=== PATIENT | female | born 1965 | race Caucasian/White ===

== ENCOUNTER → 2019-03-23 14:27 | Outpatient (CLI) | payer SELFPAY ==
--- NOTE | ~2019-03-23 | ST ---
PATIENT:KRISTA TUCKER MEDICAL RECORD: [id number] SEX: F LOCATION:[facility] ORDER #: ADMISSION DATE: 03/23/19 AGE OF PATIENT: 53 REFERRING PHYSICIAN: INTERPRETING PHYSICIAN: IRENE NARVAEZ MD DATE OF SERVICE: 03/23/2019 PROCEDURE: Stress test. INDICATION: Chest pain, hypertension, COPD, and shortness of breath. The patient was exercised on standard Ruben protocol for 7 minutes 10 seconds achieving 85% maximum target heart rate response. The patient became extremely short of breath and did develop chest pain during the stress test. There was greater than [address] depression with this stress test and its symptomatology. OVERALL IMPRESSION: Positive for inducible ischemia at adequate cardiac workload. TRANSINT:[id number] Voice Confirmation ID: [id number] DOCUMENT ID: [id number] IRENE NARVAEZ MD CC: MARIBELL SNOW [id number] DICTATION DATE: 03/24/19 1052 AUTOMATIC CLIPPER: 03/25/19 0329 DEP CLI 03/23/[address] [address]
== END | disposition home or self-care (01) ==
LOC: D.HCCARDIO 14:27
PROVIDERS: ATTEND Internal Medicine Interventional Cardiology
DX: R07.9 Chest pain, unspecified (principal)

== ENCOUNTER 2019-03-31 07:52 | Outpatient (CLI) | payer SELFPAY ==
[~2019-03-31] VITALS: Ht 165.1 cm; Wt 43.2 kg
--- NOTE | ~2019-03-31 | OP ---
PATIENT NAME: KRISTA TUCKER MEDICAL RECORD: [id number] :69 LOCATION:[facility] ADMISSION DATE: SURGEON: IRENE NARVAEZ MD DATE OF OPERATION: 03/31/2019 DATE OF SERVICE: 03/31/2019 PROCEDURES: 1. PTCA stent RCA. 2. Left heart catheterization. 3. Selective coronary angiography. 4. Left ventriculogram. INDICATION: Unstable angina and coronary artery disease. PROCEDURE IN DETAIL: After informed consent was obtained and after a detailed description of the risks, benefits as well as alternative therapies, the patient elected to proceed with angiogram and angioplasty. The right femoral area was prepped and draped in normal sterile fashion. Right femoral artery was cannulated via modified Seldinger technique with placement of 6-Divehi sheath. All catheters exchanged through this sheath. FINDINGS: Left ventriculogram was performed in standard 30-degree MERCEDES view, reveals good cardiac wall motion throughout all segments. Overall ejection fraction estimated 60%. SELECTIVE CORONARY ANGIOGRAPHY: 1. Left main is with no significant angiographic disease. 2. Left anterior descending has heavy calcification, but no significant disease. 3. Left circumflex has moderate diffuse disease, but no flow-limiting stenosis. 4. Right coronary is large, dominant with 90% stenosis in the mid vessel. PTCA STENT OF THE RCA: Stents used were 3.5 x 22 and 3.0 x 15, both Subhash stents. Result was 0% residual stenosis. OVERALL IMPRESSION: Successful percutaneous transluminal coronary angioplasty stent of the right coronary artery going from 90% initial stenosis to 0% residual. TRANSINT:[id number] Voice Confirmation ID: [id number] DOCUMENT ID: [id number] IRENE NARVAEZ MD CC: [id number] DICTATION DATE: 03/31/19 1144 CASING MIXER: 03/31/19 1309 [facility] [address] [place] [address]
--- NOTE | ~2019-03-31 | HEMODYNAMI ---
PATIENT:KRISTA TUCKER MEDICAL RECORD: [id number] : 69 LOCATION:[facility] ADMISSION DATE: 03/31/19 Generatedon:03/31/201911:52 Patient name: KRISTA TUCKER Patient #: [id number] SSN: [id number] : 1965 Date of study: 03/31/2019 Page: Of Hemodynamic Procedure Report Patient Data Patient Demographics Procedure consent was obtained First Name: KRISTA Gender: Female Last Name: GARRETT : 1965 Patient #: [id number] Age: 53 year(s) Race: Unknown SSN: [id number] Additional ID: [id number] Contact details Address: [address] [place] [address] State: [place] City: [place] Zip code: [address] Past Medical History Performed procedures and imaging results Date Procedure Procedure Results Comments Stress testing Positive->Intermediate with SPECT MPI risk Allergies Allergen Reaction Date Comments Reported Other allergy 03/31/2019 ERYTHROMYCIN BASE, OPIOIDS, TETRACYCLINE Admission Admission Data Admission Date: 03/31/2019 Admission Time: 7:52 Arrival Date: 03/31/2019 Arrival Time: 0:00 Admit Source: Other Height (in.): 64.96 BSA: 1.44 (m2) Height (cm.): 165 BMI: 15.79 (kg/m2) Weight (lbs.): 94.8 Weight (kg.): 43 Lab Results Lab Result Date: 03/31/2019 Lab Result Time: 1:00 CBC Name Units Result Min Max Hematocrit % 43.6 --(*---)-- 42 54 Hemoglobin g/dl 14.8 --(-*--)-- 13.5 17.5 Procedure Procedure Types Cath Procedure Diagnostic Procedure [facility] w/Coronaries Sedation Charges Moderate Sedation up to 30 minutes PCI Procedure Coronary Stent Coronary Stent Initial Hemochron ACT Test Procedure Description Procedure Date Procedure Date: 03/31/2019 Procedure Start Time: 11:13 Procedure End Time: 11:46 Procedure Staff Name Function Blayne Loza MD Performing Physician Adry Brown RT Monitor Lisa Moraes RT Monitor Mc Garcia RT Scrub Ike Mancuso RN Nurse Procedure Data Cath Procedure Fluoroscopy Diagnostic fluoroscopy Total fluoroscopy Time: 6 time: 6 min min Diagnostic fluoroscopy Total fluoroscopy dose: 240 dose: 240 mGy mGy Contrast Material Contrast Material Type Amount (ml) Isovue 300 120 Entry Location Entry Primary Successful Side Size Upsize Upsize Entry Closure Weber ccessful Closure Location (Fr) 1 (Fr) 2 (Fr) Remarks Device Remarks Radial Right 6 Fr Mechanical artery Short Compression Femoral Right 5 Fr 6 Fr Exoseal artery Short Estimated blood loss: 10 ml Diagnostic catheters Device Type Used For End Catheter Placement DIAGNOSTIC [place] 110cm 5 Procedure Fr catheter ([id number]) MULTIPACK Pigtail 5 Fr LV Angiography catheter MULTIPACK JL 4.0 5Fr Left Coronary catheter Angiography MULTIPACK 3DRC 5Fr Right Coronary catheter Angiography Procedure Complications No complications Procedure Medications Medication Administration Route Dosage 0.9% NaCl I.V. 100 ml/hr Oxygen etCO2 Nasal cannula 2 l/min Heparin Flush Bag added to field 2 bags (1000units/500ml NS) Lidocaine 2% added to field 20 Benadryl I.V. 50 mg Radial Cocktail added to field 1 syringe (Verapamil 2mg/Nitro 400mcg/Heparin 1500units) Versed I.V. 2 mg Versed I.V. 2 mg Radial Cocktail I.A. 1 syringe (Verapamil 2mg/Nitro 400mcg/Heparin 1500units) Versed I.V. 2 mg Zofran I.V. 4 mg Versed I.V. 2 mg Demerol I.V. 100 mg Heparin Bolus I.V. 4000 units Integrilin (Bolus I.V. 4 ml 2mg/ml) Plavix P.O. 600 mg Hemodynamics Rest BSA: 1.44 (m2) HGB: 14.8 (g/dl) O2 Consumption: Estimated: 136.38 (ml/min) O2 Co nsumption indexed: Estimated:94.71 (ml/min/m) Heart Rate: 62 (bpm) Snapshots Pre Cath Intra NCS Post Cath Vital Signs Time Heart Resp SPO2 etCO2 NIBP (mmHg) Rhythm Pain Sedation Rate (ipm) (%) (mmHg) Status Level (bpm) 10:55:07 61 15 97 0 165/81(137) NSR 0 (11) 10(A) , No pain 10:59:19 68 12 100 0 160/89(123) NSR 0 (11) 10(A) , No pain 11:03:31 69 17 99 28.4 132/83(112) NSR 0 (11) 10(A) , No pain 11:07:32 69 19 94 28.4 139/86(127) NSR 0 (11) 10(A) , No pain 11:11:36 69 15 99 32.8 153/91(119) NSR 0 (11) 10(A) , No pain 11:15:48 74 20 100 28.4 139/76(100) NSR 0 (11) 10(A) , No pain 11:19:52 79 22 98 26.1 140/87(125) NSR 0 (11) 10(A) , No pain 11:25:01 80 25 96 22.4 139/87(114) NSR 0 (11) 10(A) , No pain 11:29:07 82 13 94 0 136/83(119) NSR 0 (11) 9(A) , No pain 11:33:13 81 10 88 0 123/76(102) NSR 0 (11) 9(A) , No pain 11:37:14 88 11 93 40.3 126/78(111) NSR 0 (11) 9(A) , No pain 11:41:18 91 23 94 40.3 124/73(105) NSR 0 (11) 9(A) , No pain 11:45:22 86 14 94 34.3 108/70(87) NSR 0 (11) 10(A) , No pain Medications Time Medication Route Dose Verified Delivered Reason Not es Effectiveness by by 11:01:31 0.9% NaCl I.V. 100 Ike Ike Per physician ml/hr Bartolome Mancuso RN RN 11:01:40 Oxygen etCO2 2 l/min Ike Ike for low 02 sats Nasal Bartolome Mancuso cannula RN RN 11:01:52 Heparin Flush added 2 bags Ike Ike used for Bag to Bartolome Mancuso procedure (1000units/500ml field RN RN NS) 11:02:09 Lidocaine 2% added 20ml Ike Ike for local to vial Lorigan Bartolome anesthetic RN RN 11:02:35 Benadryl I.V. 50 mg Ike Ike Per physician Bartolome Mancuso RN RN 11:08:25 Radial Cocktail added 1 Ike Ike used for (Verapamil to syringe Loramanda Mancuso procedure 2mg/Nitro field PEREZ RN 400mcg/Heparin 1500units) 11:13:28 Versed I.V. 2 mg Ike Ike for sedation Bartolome Mancuso RN RN 11:15:30 Versed I.V. 2 mg Ike Ike for sedation Bartolome Mancuso RN RN 11:16:02 Radial Cocktail I.A. 1 Ike Blayne for (Verapamil syringe Bartolome Loza MD vasodilation 2mg/Nitro RN 400mcg/Heparin 1500units) 11:24:30 Versed I.V. 2 mg Ike Ike for sedation Bartolome Mancuso RN RN 11:25:47 Zofran I.V. 4 mg Ike Ike Per physician Bartolome Mancuso RN RN 11:27:19 Versed I.V. 2 mg Ike Ike for sedation Bartolome Mancuso RN RN 11:27:36 Demerol I.V. 100 mg Ike Ike for sedation Bartolome Mancuso RN RN 11:31:33 Heparin Bolus I.V. 4000 Ike Ike for joseph ified units Bartolome Mancuso anticoagulation with dr ANA brand 11:32:46 Integrilin I.V. 4 ml Ike Ike for was scottie 6 (Bolus 2mg/ml) Bartolome Mancuso antiplatelet ml of RN RN therapy vial 11:44:01 Plavix P.O. 600 mg Ike Ike for Bartolome Mancuso antiplatelet RN RN therapy Procedure Log Time Note 10:39:37 Informed consent obtained and on chart 10:39:58 Procedure Status Elective Heart Cath (OP). 10:40:01 Mc Garcia RT(R) sent for patient. Start room use. 10:40:02 Time tracking: Regular hours (M-F 7:00 - 5:00) 10:40:05 Plan of Care:Hemodynamics will remain stable., Cardiac rhythm will remain stable., Comfort level will be maintained., Respiratory function will remain adequate., Patient/ family verbilizes understanding of procedure., Procedure tolerated without complication., Recovers from procedure without complications.. 10:41:04 H&P Date Dictated: 03/02/2019 Within 30 days and on chart., H&P Addendu m completed by physician on day of procedure. (MUST COMPLETE FOR ALL OUTPATIENTS). 10:41:29 Patient allergic to Other allergyERYTHROMYCIN BASE, OPIOIDS, TETRACYCLINE 10:41:54 Lab Result : BUN 16 mg/dl 10:41:54 Lab Result : Creatinine 0.7 mg/dl 10:41:54 Lab Result : eGFR NONAFRICAN 90 ml/min 10:46:23 Patient Weight : 94.8 lbs 10:46:27 Patient Height : 64.96 inches 10:46:31 Arrival Date: 03/31/2019 12:00:00 AM 10:46:33 Admit Source: Other 10:47:33 Lab Result : Hemoglobin 14.8 g/dl 10:47:33 Lab Result : Hematocrit 43.6 % 10:47:46 Patient received from Pre/Post Procedure Room to CCL 1 Alert and oriented. Tansferred to table in Supine position. 10:47:47 Warm blankets applied, and zion hugger turned on for patient comfort. 10:47:47 Correct patient and procedure confirmed by team. 10:47:48 ECG and BP/O2 sat monitors applied to patient. 10:49:34 Stress Test: yes; abnormal ? 10:49:37 Risk of Mortality: .2 10:49:39 Risk of blood transfusion: 2 10:49:42 Risk of [place]: .8 10:53:59 Vital chart was started 10:54:37 Pre-procedure instructions explained to patient. 10:54:38 Pre-op teaching completed and patient verbalized understanding. 10:54:44 Family in waiting room. 10:54:56 Patient NPO since Midnight. 10:54:59 Is the patient allergic to Iodine/contrast media? No. 10:55:05 Was the patient premedicated? Yes 10:55:13 Is patient on blood thinner?No 10:55:16 Patient diabetic? No. 10:56:32 Patient not . Patient has had tubal. 10:56:34 - 10:56:35 ----Pre-sedation anethsthesia assessment.---- 10:56:40 Previous problem with sedation/anesthesia? No ? 10:56:45 Snore? Yes 10:57:00 Sleep apnea? No 10:57:07 Deviated septum? No 10:57:09 Opens mouth fully? Yes 10:57:12 Sticks out tongue? Yes 10:57:36 Airway obstruction? Yes asthma/copd 10:57:43 Dentures? No ? 10:57:57 Pre procedure: right dorsailis pedis pulse 1+ Palpable, but thready & weak; easily obliterated 10:58:02 Modified Nav's test Ulnar < 7 seconds 10:58:10 Patient pain scale 0/10 ?. 10:59:04 IV patent on arrival in right antecubital with 0.9% NaCl at [facility]. 10:59:12 Lab results completed and on chart. 10:59:19 Right Radial & Right Groin area was prepped with chlora-prep and draped in sterile fashion 10:59:22 Alarms reviewed by R. N. 10:59:23 Sharps counted by scrub and verified by R.N. 10:59:29 Baseline sample Acquired. 10:59:36 Rhythm: sinus rhythm 10:59:39 Full Disclosure recording started 11:01:31 0.9% NaCl 100 ml/hr I.V. was administered by Ike Mancuso RN; Per physician; Verbal order read back and verified. 11:01:40 Oxygen 2 l/min etCO2 Nasal cannula was administered by Ike Mancuso RN; for low 02 sats; Verbal order read back and verified. 11:01:52 Heparin Flush Bag (1000units/500ml NS) 2 bags added to field was administered by Ike Mancuso RN; used for procedure; Verbal order read back and verified. 11:02:09 Lidocaine 2% 20ml vial added to field was administered by Ike Mancuso RN; for local anesthetic; Verbal order read back and verified. 11:02:35 Benadryl 50 mg I.V. was administered by Ike Mancuso RN; Per physician; Verbal order read back and verified. 11:03:20 Use device set Radial Dx or PCI 11:03:22 ACIST Syringe (06510) opened to sterile field. 11:03:23 Medline Cath Pack ([id number]) opened to sterile field. 11:03:24 Bag Decanter () opened to sterile field. 11:03:25 ACIST Hand Control (89169) opened to sterile field. 11:03:26 ACIST Manifold (54252) opened to sterile field. 11:03:27 Tegaderm 4 x 4 (1626W) opened to sterile field. 11:03:28 MBrace Wrist Support ([id number]) opened to sterile field. 11:03:30 EMERALD Guide Wire (180-841) opened to sterile field. 11:03:31 SHEATH 6FR RAIN (5065978) opened to sterile field. 11:04:42 ACC Patient presents with Stable Angina CCS Anginal Class 2--Slight limitation of ordinary activity. 11:05:09 ACCPatient has been prescribed/administered the following anti-anginal medication within the last 2 weeks: CLAUDIO-Inhibitor 11:06:01 Zero performed for pressure channel P1 11:08:25 Radial Cocktail (Verapamil 2mg/Nitro 400mcg/Heparin 1500units) 1 syring e added to field was administered by Ike Mancuso RN; used for procedure; Verbal order read back and verified. 11:12:36 Physician arrived 11:12:42 --------ALL STOP TIME OUT------ 11:12:43 Final Timeout: patient, procedure, and site verified with staff and physician. All members of the team are in agreement. 11:12:44 Right Radial & Right Groin site verified by team. 11:12:47 Fire Safety Assessment: A--An alcohol-based skin anteseptic being used preoperatively., C--Open oxygen or nitrous oxide is being used., D--An ESU, laser, or fiber-optic light is being used. 11:12:50 Physical assessment completed. ASA score P 2 - A patient with mild systemic disease as per Blayne Loza MD. 11:12:51 1) 90+ Normal kidney functon but urine findings or structural abnormalities or genetic trait point to kidney disease. 11:12:56 Maximum allowable contrast dose (3.7 X eGFR X 0.75)250 ml. 11:13:00 Sedation plan: IV Moderate Sedation Medication:Versed, Fentanyl 11:13:19 Procedure started. 11:13:28 Versed 2 mg I.V. was administered by Ike Mancuso RN; for sedation; Verbal order read back and verified. 11:13:54 Local anesthetic to right radial artery with Lidocaine 2% by Blayne Loaz MD.INITIAL ACCESS ONLY 11:15:11 A 6 Fr Short sheath was inserted into the Right Radial artery 11:15:30 Versed 2 mg I.V. was administered by Ike Mancuso RN; for sedation; Verbal order read back and verified. 11:15:36 A DIAGNOSTIC [place] 110cm 5 Fr catheter ([id number]) was advanced over the wire and used for Procedure. 11:16:02 Radial Cocktail (Verapamil 2mg/Nitro 400mcg/Heparin 1500units) 1 syring e I.A. was administered by Blayne Loza MD; for vasodilation; Verbal order read back and verified. 11:16:21 GLIDE WIRE ANGLE 260cm ([id number]) opened to sterile field. 11:16:42 glidewire 260 wire advanced. 11:20:19 UNABLE TO GO RADIAL / PROCEED TO RT GROIN. 11:20:27 Local anesthetic to right femoral artery with Lidocaine 2% by Blayne Loza MD.ADDITIONAL ACCESS 11:20:38 SHEATH 5FR [place]hart (JFG471) opened to sterile field. 11:20:43 Use device set Multipack Set 11:20:48 DIAGNOSTIC Multipack 5Fr catheter set ([id number]) opened to sterile field. 11:24:30 Versed 2 mg I.V. was administered by Ike Mancuso RN; for sedation; Verbal order read back and verified. 11:25:47 Zofran 4 mg I.V. was administered by Ike Mancuso RN; Per physician; Verbal order read back and verified. 11:27:11 Catheter removed. 11:27:19 Versed 2 mg I.V. was administered by Ike Mancuso RN; for sedation; Verbal order read back and verified. 11:27:24 A 5 Fr sheath was inserted into the Right Femoral artery 11:27:36 Demerol 100 mg I.V. was administered by Ike Mancuso RN; for sedation; Verbal order read back and verified. 11:27:42 A MULTIPACK Pigtail 5 Fr catheter was advanced over the wire and used for LV Angiography. 11:27:51 EF : 55 % 11::53 LV gram done using MERCEDES 11::57 Injector settings: Ml/sec: 5, Volume: 15, 11:28:08 A MULTIPACK JL 4.0 5Fr catheter was advanced over the wire and used for Left Coronary Angiography. 11:28:29 LCA angiography performed. 11:28:34 Injector settings: Ml/sec: 3, Volume: 6, 11:28:57 [place] Verrata Plus pressure wire ([id number]) opened to sterile field. 11:29:09 SHEATH 6FR [place]hart (LPC091) opened to sterile field. 11:29:21 INFLATOR Merit BasixCompak (IQ2602) opened to sterile field. 11:29:29 Catheter removed. 11:29:37 A MULTIPACK 3DRC 5Fr catheter was advanced over the wire and used for Right Coronary Angiography. 11:29:50 RCA angiography performed. 11::53 Injector settings: Ml/sec: 3, Volume: 6, 11:30:04 ACCDominant side:Right 11:30:22 Catheter removed. 11:30:25 Proceeding to intervention. 11:30:40 ACC Pre-intervention MEGAN Flow is 3. 11:30:54 Sheath upsized to a 6 Fr Short. 11:31:07 GUIDE 6FR AR 2.0 catheter ([id number]) opened to sterile field. 11:31:23 6 Fr AR2 guide catheter was inserted over the wire 11:31:33 Heparin Bolus 4000 units I.V. was administered by Ike Mancuso RN; for anticoagulation; verified with dr olza Verbal order read back and verified. 11:31:37 Pre PCI Site: [place] mRCA has 90% stenosis. 11:32:02 CHOICE PT Extra Support 182cm wire ([id number]) opened to sterile field. 11:32:15 CHOICE 180 wire advanced. 11:32:19 Wire advanced across lesion. 11:32:46 Integrilin (Bolus 2mg/ml) 4 ml I.V. was administered by Ike Mancuso RN; for antiplatelet therapy; wasted 6 ml of vial Verbal order read back and verified. 11:32:55 Inflate balloon Inflation number: 1 A EUPHORA 3.0 x 20 Balloon ([id number]) was prepped and advanced across the Mid RCA , then inflated to 21 GAYLE for 0:00 (min:sec) . 11:33:19 Balloon removed over the wire. 11:35:09 Place stent Inflation Number: 2 A ROBERTO RX 3.0 x 15 stent ([id number]) was prepped and advanced across the Mid RCA . The stent was deployed at 21 GAYLE for 0:00 (min:sec) . 11:35:44 Stent catheter was removed intact over wire. 11:36:39 Place stent Inflation Number: 3 A ROBERTO RX 3.5 x 22 stent ([id number]) was prepped and advanced across the Mid RCA . The stent was deployed at 19 GAYLE for 0:00 (min:sec) . 11:37:34 Inflation number: 4 The stent balloon was then re-inflated across the Mid RCA to 11 GAYLE for 0:00 (min:sec) . 11:38:26 Stent catheter was removed intact over wire. 11:38:28 Wire removed. 11:38:35 Guide catheter removed. 11:39:01 EXOSEAL 6Fr (EX600) opened to sterile field. 11:39:19 ACC Post-intervention MEGAN Flow is 3. 11:39:31 Post PCI Site: [place] mRCA has 0% stenosis. 11:39:42 ZEPHYR REGULAR TR BAND (041906) opened to sterile field. 11:40:05 Sheath removed intact; hemostasis achieved with Exoseal to the Right Femoral artery. 11:40:17 Sheath removed intact; hemostasis achieved with Mechanical Compression to the Right Radial artery. 11:40:20 Procedure ended.(Physican Out) 11:41:06 ACT drawn and resulted at 216 seconds. (normal therapeutic range 180-24 0 seconds). 11:41:18 Contrast amount:Isovue 300 120ml. 11:41:29 Fluoroscopy time 06.00 minutes. 11:41:37 Fluoroscopy dose: 240 mGy 11:41:37 Flurop Dose total: 240 11:41:48 Dose Area Product 85660 mGy/cm. 11:41:52 Maximum allowable dose exceeded? No. 11:41:54 Sharps counted by scrub and verified by R.N. 11:41:57 Insertion/operative site no bleeding no hematoma. 11:42:04 Post-op/insertion site Right Femoral artery dressed using a 4 x 4 and Tegaderm. 11:42:10 Post right radial artery:stable 11:42:14 Post Procedure Pulses reassessed and unchanged 11:42:22 Post-procedure physical assessment completed. ASA score P 2 - A patient with mild systemic disease as per Blayne Loza MD. 11:42:31 Post procedure rhythm: unchanged. 11:42:36 Estimated blood loss: 10 ml 11:42:39 Post procedure instruction explained to patient.Patient verbalizes understanding. 11:42:40 Patient needs reinforcement of post procedure teaching. 11:44:01 Plavix 600 mg P.O. was administered by Ike Mancuso RN; for antiplatelet therapy; Verbal order read back and verified. 11:44:28 Procedure type changed to Cath procedure, Diagnostic procedure, LHC, C w/Coronaries, Sedation Charges, Moderate Sedation up to 30 minutes, PCI procedure, Coronary Stent, Coronary Stent Initial, Hemochron ACT Test 11:44:30 Procedure and supply charges have been captured, reviewed, submitted an d are correct. 11:46:01 Procedure Complication : No complications 11:46:16 Vital chart was stopped 11:46:20 [facility] Findings: MVD- PCI performed (see procedure note) 11:46:24 Operative report dictated upon procedure completion. 11:46:25 See physician's report for complete and final results. 11:46:28 Report given to Pre/Post Procedure Room. 11:46:38 Patient transfered to Pre/Post Procedure Room with Stretcher. 11:46:41 Procedure ended. 11:46:41 Full Disclosure recording stopped 11:46:49 ACC-PCI Only Patient was given prescriptions, or instructed by Blayne Loza MD to start/continue the following medications upon discharge: Plavix 11:50:50 [place] band inflated with 10cc of air. 11:50:55 End room use (Document Last) Intervention Summary Intervention Notes Time ActionType Lesion and Equipment Used Action# Pressure Duration Attributes 11:32:55 Inflate Mid RCA EUPHORA 3.0 x 1 21 00:00 balloon 20 Balloon ([id number]) 11:35:09 Place stent Mid RCA ROBERTO RX 3.0 x 2 21 00:00 15 stent ([id number]) 11:36:39 Place stent Mid RCA ROBERTO RX 3.5 x 3 19 00:00 22 stent ([id number]) 11:37:34 Reinflate Mid RCA ROBERTO RX 3.5 x 4 11 00:00 stent 22 stent balloon ([id number]) Device Usage Item Name Manufacture Quantity Catalog Number Hospital Part Current Minimal Lot# / Charge Number Stock Stock Serial# Code ACIST Syringe Acist 1 87515 900973 091875 111086 20 (01895) Medical Systems Inc Medline Cath Medline 1 [id number] 745740 38200 791145 5 Pack ([id number]) Bag Decanter Microtek 1 2001S 252314 54792 891907 5 (2001S) Medical Inc. ACIST Hand Acist 1 09932 508270 207633 752281 5 Control Medical (04781) Systems Inc ACIST Manifold Acist 1 00726 495114 619666 572474 5 (67283) Medical Systems Inc Tegaderm 4 x 4 3M 1 1626W 689782 348743 741600 5 (1626W) MBrace Wrist Advanced 1 140-0250-00 948204 02000 215219 5 Support Vascular ([id number]) Dynamics EMERALD Guide Cardinal 1 502-455 802830 419369 479311 5 Wire (502-455) Health SHEATH 6FR Cardinal 1 1040947 237574 8834367 974486 5 RAIN (8178612) Health DIAGNOSTIC Terumo 1 40-5013 604710 014014 456811 5 [place] 110cm 5 Fr catheter (466951) GLIDE WIRE Terumo 1 BV6609 421774 810292 068453 5 ANGLE 260cm (XS4835) SHEATH 5FR Terumo 1 LWJ879 757890 254077 515799 5 [place] (FFB197) DIAGNOSTIC Cardinal 1 JM4115 668385 50544 864187 30 Multipack 5Fr Health catheter set (AF9992) MULTIPACK Cardinal 1 107996 5 Pigtail 5 Fr Health catheter MULTIPACK JL Cardinal 1 373894 5 4.0 5Fr Health catheter [place] 1 55375U 234933 375735862 802009 5 Verrata Plus pressure wire (24990A) SHEATH 6FR Terumo 1 CQA639 125374 108136 433840 40 [place] (VUQ115) INFLATOR Merit Merit 1 HI9846 669569 684040 166913 15 [facility] Medical (WB4580) MULTIPACK 3DRC Cardinal 1 126482 5 5Fr catheter Health GUIDE 6FR AR Medtronic 1 [id number] 726835 17931 924784 1 2.0 catheter (QE0ID49) CHOICE PT [place] 1 [id number] 741113 351835 168901 5 Extra Support Scientific 182cm wire (1106783E8) EUPHORA 3.0 x Medtronic 1 [id number] 481205 288946 967504 5 [id number] 20 Balloon ([id number]) ROBERTO RX 3.0 x Medtronic 1 [id number] 247431 2667126 239264 5 [id number] 15 stent ([id number]) ROBERTO RX 3.5 x Medtronic 1 [id number] 061184 4989123 436280 5 [id number] 22 stent ([id number]) EXOSEAL 6Fr Cardinal 1 EX600 019550 780388 348855 10 (EX600) Health ZEPHYR REGULAR Cardinal 1 545347 366904 4036856 185869 5 [facility] MileIQ (749626) Signature Audit [place] Stage Time Signature Unsigned Intra-Procedure 03/31/2019 Lisa 11:51:39 AM Aleisha RT(R) (CV) Intra-Procedure 03/31/2019 Ike 11:52:13 AM Bartolome PEREZ Intra-Procedure 03/31/2019 Blayne Loza 11:52:41 AM [place] [id number] [place] [address]
[2019-03-31] MEDS ORDERED: LISINOPRIL10 MG PO (08:09)
[2019-03-31] MEDS ORDERED: NORVASC2.5 MG PO (08:09)
[2019-03-31] MEDS ORDERED: FLOVENT HFA 11012 GM INH (08:10)
[2019-03-31] MEDS ORDERED: KLONOPIN1 MG PO (08:10)
[2019-03-31] MEDS ORDERED: SYMBICORT 16010.2 GM INH (08:11)
[2019-03-31 08:39] VITALS: BP 136/82; Ht 165.1 cm; Wt 43.2 kg
[2019-03-31 09:00] LABS: ALT (SGPT) 24 U/L (10-68); CALC OSMOLALITY 278 mosm/kg (275-300); CALCIUM 9.3 mg/dL (8.5-10.1); CARBON DIOXIDE 27.7 mmol/L (21.0-32.0); CHLORIDE - SERUM 106 mmol/L (98-107); CHOL - HDL RATIO 2.7 ratio (2.3-4.1); CHOLESTEROL, TOTAL 127 mg/dL (0-200); CREATININE - SERUM 0.7 mg/dL (0.6-1.3); GLUCOSE 77 mg/dL (74-106); HDL CHOLESTEROL 48 mg/dL (32-96); LDL CHOLESTEROL 70 mg/dL (0-100); LDL-HDL RATIO 1.5 ratio (1.5-3.5); POTASSIUM - SERUM 3.8 mmol/L (3.5-5.1); SODIUM 140 mmol/L (136-145); TRIGLYCERIDE 48 mg/dL (30-200); UREA NITROGEN 16 mg/dL (7-18); eGFR NON AFRICAN AMERICAN > 90 mL/min (90-120)
[2019-03-31 10:46] LABS: BASOPHILS 0.2 % (0-2); EOSINOPHILS 1.2 % (0-7); HEMATOCRIT 43.6 % (36.0-48.0); HEMOGLOBIN 14.8 g/dL (12-16); IMMATURE GRANULOCYTES 0.1 % (0-5); LYMPHOCYTES 21.3 % (15-50); MCH 31.5 pg (26.0-34.0); MCHC 33.9 g/dL (31.0-37.0); MCV 92.8 fL (80.0-100.0); MEAN PLATELET VOLUME 10.8 fL (7.4-10.4); MONOCYTES 5.4 % (2-11); NEUTROPHILS 71.8 % (40-80); PLATELET COUNT 335 10x3/uL (130-400); RDW 14.2 % (11.5-14.5); WBC 8.8 10x3/uL (4.8-10.8)
--- NOTE | 2019-03-31 12:00 | NUR ---
PT ARRIVED BY STRETCHER. PLACED ON MONITORS. ASSESSMENT COMPLETED. VSS. CALL LIGHT WITHIN REACH. FAMILY AT BEDSIDE.
--- NOTE | 2019-03-31 12:15 | NUR ---
PT RESTING COMFORTABLY. VSS. CALL LIGHT WITHIN REACH. FAMILY AT BEDSIDE. RIGHT WRIST Z BAND IN PLACE. NO BLEEDING/HEMATOMA NOTED. RIGHT GROIN DRESSING C/D/I. NO S/S OF HEMATOMA NOTED.
[2019-03-31] MEDS ORDERED: BAYER CHEWABLE81 MG PO (12:32)
[2019-03-31] MEDS ORDERED: PLAVIX75 MG PO (12:33)
--- NOTE | 2019-03-31 12:48 | NUR ---
PT RESTING COMFORTABLY. VSS. RIGHT GROIN DRESSING C/D/I. NO S/S OF HEMATOMA NOTED. RIGHT WRIST Z BAND IN PLACE. NO BLEEDING/HEMATOMA NOTED. CALL LIGHT WITHIN REACH. FAMILY AT BEDSIDE.
--- NOTE | 2019-03-31 13:20 | NUR ---
RIGHT GROIN DRESSING C/D/I. NO S/S OF HEMATOMA NOTED. CALL LIGHT WITHIN REACH. VSS. FAMILY AT BEDSIDE. PT AWAKENS TO VOICE. ABLE TO SWALLOW THE PLAVIX 600MG WITH SIPS OF WATER. TOLERATED WELL.
--- NOTE | 2019-03-31 14:45 | NUR ---
RIGHT GROIN DRESSING C/D/I. NO S/S OF HEMATOMA NOTED. CALL LIGHT WITHIN REACH. FAMILY AT BEDSIDE. PT'S HEAD OF BED INC TO 30 DEGREES. TOLERATED WELL. 1cc OF AIR REMOVED FROM Z BAND. NO BLEEDING/HEMATOMA NOTED. PT SET UP WITH SANDWICH AND DRINK. DENIES NAUSEA/PAIN AT THIS TIME.
--- NOTE | 2019-03-31 14:55 | NUR ---
2cc OF AIR REMOVED FROM Z BAND. TOLERATED WELL. NO BLEEDING/HEMATOMA NOTED. CALL LIGHT WITHIN REACH. FAMILY AT BEDSIDE. PT TOLERATING FOOD AND DRINK. RIGHT GROIN DRESSING C/D/I. NO S/S OF HEMATOMA NOTED.
--- NOTE | 2019-03-31 15:05 | NUR ---
2cc OF AIR REMOVED FROM Z BAND. TOLERATING WELL. NO S/S OF HEMATOMA NOTED. CALL LIGHT WITHIN REACH. FAMILY AT BEDSIDE. NO NEEDS AT THIS TIME.
--- NOTE | 2019-03-31 15:30 | NUR ---
PIV D/C'D WITH CATH TIP INTACT. PT TOLERATED WELL. RIGHT GROIN DRESSING C/D/I. NO S/S OF HEMATOMA NOTED. RIGHT WRIST Z BAND REMOVED AND DRESSING APPLIED. NO BLEEDING/HEMATOMA NOTED. RIGHT WRIST BRACE IN PLACE. PT UP AND AMBULATED TO RESTROOM. VOIDED WITHOUT DIFFICULTY. STEADY GAIT NOTED. BACK TO ROOM AND GETTING DRESSED WITH ASSIST FROM FAMILY.
--- NOTE | 2019-03-31 15:40 | NUR ---
DISCUSSED DISCHARGE INSTRUCTIONS WITH PT AND PT'S FAMILY. THEY VOICED UNDERSTANDING.
--- NOTE | 2019-03-31 15:45 | NUR ---
RIGHT WRIST DRESSING C/D/I. NO S/S OF HEMATOMA NOTED. RIGHT GROIN DRESSING C/D/I. NO S/S OF HEMATOMA NOTED. PT TAKEN OUT TO VEHICLE BY WHEELCHAIR. NO S/S OF DISTRESS NOTED. ALL BELONGINGS AND PAPERWORK IN HAND.
== END 2019-03-31 15:45 | disposition home or self-care (01) ==
LOC: D.CATH 07:52
PROVIDERS: ATTEND Internal Medicine Interventional Cardiology
DX: I25.110 Atherosclerotic heart disease of native coronary artery with unstable angina pectoris (principal); R94.30 Abnormal result of cardiovascular function study, unspecified; Z72.0 Tobacco use; J44.9 Chronic obstructive pulmonary disease, unspecified; I10 Essential (primary) hypertension

== ENCOUNTER 2019-10-28 11:34 | Inpatient (IN) | payer MEDICAID ==
[~2019-10-28] VITALS: Ht 165.1 cm; Wt 38.6 kg
--- NOTE | ~2019-10-28 | HEMODYNAMI ---
PATIENT:KRISTA TUCKER MEDICAL RECORD: [id number] : 69 LOCATION[facility] D.[address] [id number] ADMISSION DATE: 10/28/19 Generatedon:10/30/201910:38 Patient name: KRISTA TUCKER Patient #: [id number] SSN: [id number] : 1965 Date of study: 10/30/2019 Page: Of Hemodynamic Procedure Report Patient Data Patient Demographics Procedure consent was obtained First Name: KRISTA Gender: Female Last Name: GARRETT : 1965 Patient #: [id number] Age: 54 year(s) Race: Unknown SSN: [id number] Additional ID: [id number] Contact details [address]: [address] [place] [address] State: [place] City: [place] Zip code: [address] Past Medical History Allergies Allergen Reaction Date Comments Reported Other allergy 03/31/2019 ERYTHROMYCIN BASE, OPIOIDS, TETRACYCLINE Admission Admission Data Admission Date: 10/28/2019 Admission Time: 15:03 Arrival Date: 10/28/2019 Arrival Time: 15:03 Admit Source: Other Insurance Payor: None Room #: D.2115 Height (in.): 64.96 BSA: 1.5 (m2) Height (cm.): 165 BMI: 17.26 (kg/m2) Weight (lbs.): 103.62 Weight (kg.): 47 Procedure Procedure Types Cath Procedure Diagnostic Procedure C [facility] w/Coronaries FFR/IVUS FFR Initial FFR Additional Procedure Description Procedure Date Procedure Date: 10/30/2019 Procedure Start Time: 10:06 Procedure End Time: 10:33 Procedure Staff Name Function Hieu Gtz MD Performing Physician Seema Ugarte RT Monitor Adry Brown RT Scrub Alejandra Artis RN Nurse Jose M Vigil CRNA Additional personnel Procedure Data Cath Procedure Fluoroscopy Diagnostic fluoroscopy Total fluoroscopy Time: 4.8 time: 4.8 min min Diagnostic fluoroscopy Total fluoroscopy dose: 262 dose: 262 mGy mGy Contrast Material Contrast Material Type Amount (ml) Isovue 300 70 Entry Location Entry Primary Successful Side Size Upsize Upsize Entry Closure Succes sful Closure Location (Fr) 1 (Fr) 2 (Fr) Remarks Device Remarks Femoral Right 5 Fr Exoseal artery Estimated blood loss: 5 ml Diagnostic catheters Device Type Used For End Catheter Placement MULTIPACK JL 4.0 5Fr Left Coronary catheter Angiography MULTIPACK 3DRC 5Fr Right Coronary catheter Angiography MULTIPACK Pigtail 5 Fr LV Angiography catheter MULTIPACK JL 4.0 5Fr Procedure catheter Procedure Complications No complications Procedure Medications Medication Administration Route Dosage Oxygen etCO2 Nasal cannula 2 l/min Lidocaine 2% added to field 20 Heparin Flush Bag added to field 2 bags (1000units/500ml NS) 0.9% NaCl I.V. 100 ml/hr Refer to Anesthesia Notes for Sedation Medications Heparin Bolus I.V. 2000 units Hemodynamics Rest BSA: 1.5 (m2) O2 Consumption: Estimated: 144.93 (ml/min) O2 Consumption indexed: Estimated:96.62 (ml/min/m) Heart Rate: 68 (bpm) Pressure Samples Time Site Value (mmHg) Purpose Heart Use Rate(bpm) 10:22 LV 86/0,19 Snapshot 70 10:23 AO 90/47(65) Pullback 70 10:23 LV 99/0,18 Pullback 70 Gradients Valve Time Site 1 Site 2 Mean SEP/DFP Peak To Heart Use (mmHg) (sec/min) Peak Rate (mmHg) (bpm) Aortic 10:23 LV AO 10 19 9 70 99/0,18 90/47(65) Calculations Valve P-P Mean Valve Index Valve Source Name Gradient Area Flow (cm2) Aortic 9 10 9 10 Snapshots Pre Cath Intra NCS Post Cath Vital Signs Time Heart Resp SPO2 etCO2 NIBP Rhythm Pain Sedation Rate (ipm) (%) (mmHg) (mmHg) Status Level (bpm) 9:55:40 73 22 100 18.7 116/68(94) NSR 0 (11) 10(A) , No pain 9:57:50 68 13 100 21.7 Measuring NSR 0 (11) 10(A) , No pain 10:00:50 68 19 99 21.7 82/54(63) NSR 0 (11) 10(A) , No pain 10:05:20 67 17 99 18 82/54(63) NSR 0 (11) 9(A) , No pain 10:10:16 71 15 98 24.7 89/60(68) NSR 0 (11) 9(A) , No pain 10:14:13 71 15 98 40.4 87/54(62) NSR 0 (11) 9(A) , No pain 10:18:11 71 15 98 33.7 77/53(61) NSR 0 (11) 9(A) , No pain 10:22:02 69 13 99 38.9 84/60(73) NSR 0 (11) 9(A) , No pain 10:25:58 72 14 99 36.7 87/55(69) NSR 0 (11) 9(A) , No pain 10:29:58 72 15 98 34.5 79/48(59) NSR 0 (11) 10(A) , No pain 10:33:55 69 14 97 33.7 77/46(56) NSR 0 (11) 10(A) , No pain Medications Time Medication Route Dose Verified Delivered Reason Notes Effectiveness by by 9:59:36 Oxygen etCO2 2 Hieu Buffie used for Nasal l/min Ulisses Artis RN procedure cannula 9:59:43 Lidocaine 2% added 20ml Hieu Hieu for local to vial Ulisses Gtz MD anesthetic field 9:59:50 Heparin Flush added 2 Hieu Hieu for local Bag to bags Ulisses Gtz MD anesthetic (1000units/500ml field NS) 10:00:00 0.9% NaCl I.V. 100 Hieu Buffie Per physician ml/hr Ulisses Artis RN 10:05:39 Refer to Hieu Buffie Anesthesia Notes Ulisses Artis RN for Sedation Medications 10:23:18 Heparin Bolus I.V. 2000 Hieu Buffie for units Ulisses Artis RN anticoagulation Procedure Log Time Note 9:12:27 Informed consent obtained and on chart 9:12:45 Procedure Status Urgent Heart Cath (IP). 9:12:46 Time tracking: Regular hours (M-F 7:00 - 5:00) 9:12:49 Plan of Care:Hemodynamics will remain stable., Cardiac rhythm will remain stable., Comfort level will be maintained., Respiratory function will remain adequate., Patient/ family verbilizes understanding of procedure., Procedure tolerated without complication., Recovers from procedure without complications.. 9:12:54 Alejandra Artis RN sent for patient. Start room use. 9:32:53 Risk of Mortality: 0.1 9:32:57 Risk of blood transfusion: 1.2 9:33:01 Risk of [place]: 0.5 9:33:22 2) 60-89 Mildly reduced kidney function, and other findings (as for stage 1) point to kidney disease. 9:33:53 Maximum allowable contrast dose (3.7 X eGFR X 0.75)222 ml. 9:38:04 Admit Source: Other 9:38:06 Arrival Date: 10/28/2019 3:03:00 PM 9:38:28 Insurance Payor : None 9:38:36 Patient Height : 64.96 inches 9:38:40 Patient Weight : 103.62 lbs 9:39:31 Patient received from Med II to CCL 2 Alert and oriented. Tansferred to table in Supine position. 9:39:32 Warm blankets applied, and zion hugger turned on for patient comfort. 9:39:32 Correct patient and procedure confirmed by team. 9:39:33 ECG and BP/O2 sat monitors applied to patient. 9:50:56 Jose M Vigil CRNA present and monitoring patient for TIVA. 9:51:45 Baseline sample Acquired. 9:51:45 Vital chart was started 9:51:49 Rhythm: sinus rhythm 9:51:51 Full Disclosure recording started 9:51:55 H&P Date Dictated: 10/30/2019 New H&P dictated by physician.. 9:54:48 Pre-procedure instructions explained to patient. 9:54:49 Pre-op teaching completed and patient verbalized understanding. 9:54:51 Family in patients room. 9:54:53 Patient NPO since Midnight. 9:54:55 Is the patient allergic to Iodine/contrast media? No. 9:54:56 Was the patient premedicated? Yes 9:55:11 Is patient on blood thinner?No 9:55:15 Patient diabetic? No. 9:55:23 Previous problem with sedation/anesthesia? No ? 9:55:25 Snore? Yes 9:55:26 Sleep apnea? No 9:55:27 Deviated septum? No 9:55:28 Opens mouth fully? Yes 9:55:28 Sticks out tongue? Yes 9:55:32 Airway obstruction? Yes copd 9:55:41 Dentures? Yes in tight 9:55:45 Pre procedure: right dorsailis pedis pulse 2+ Normal; easily identifiable; not easily obliterated 9:55:48 Pre procedure: left dorsailis pedis pulse 2+ Normal; easily identifiable; not easily obliterated 9:55:51 Patient pain scale 0/10 ?. 9:55:58 IV patent on arrival in left forearm with 0.9% NaCl at O. 9:56:00 Lab results completed and on chart. 9:56:07 Right groin area was prepped with chlora-prep and draped in sterile fashion 9:56:08 Alarms reviewed by R. N. 9:56:08 Sharps counted by scrub and verified by R.N. 9:56:10 Physician arrived 9:56:11 --------ALL STOP TIME OUT------ 9:56:11 Final Timeout: patient, procedure, and site verified with staff and physician. All members of the team are in agreement. 9:56:13 Right groin site verified by team. 9:56:16 Fire Safety Assessment: A--An alcohol-based skin anteseptic being used preoperatively., C--Open oxygen or nitrous oxide is being used., D--An ESU, laser, or fiber-optic light is being used. 9:56:20 Physical assessment completed. ASA score P 2 - A patient with mild systemic disease as per Hieu Gtz MD. 9:56:48 Use device set Femoral Dx 9:56:49 ACIST Syringe (07732) opened to sterile field. 9:56:50 Bag Decanter (2002) opened to sterile field. 9:56:50 Medline Cath Pack ([id number]) opened to sterile field. 9:56:51 ACIST Hand Control (23295) opened to sterile field. 9:56:52 ACIST Manifold (84198) opened to sterile field. 9:56:52 DIAGNOSTIC Multipack 5Fr catheter set (RO4118) opened to sterile field. 9:56:53 Tegaderm 4 x 4 (1626W) opened to sterile field. 9:56:54 SHEATH 5FR [place] (IWH831) opened to sterile field. 9:56:54 EMERALD Guide Wire (833-775) opened to sterile field. 9:59:36 Oxygen 2 l/min etCO2 Nasal cannula was administered by Alejandra Artis RN; used for procedure; Verbal order read back and verified. 9:59:43 Lidocaine 2% 20ml vial added to field was administered by Hieu Gtz MD; for local anesthetic; Verbal order read back and verified. 9:59:50 Heparin Flush Bag (1000units/500ml NS) 2 bags added to field was administered by Hieu Gtz MD; for local anesthetic; Verbal order read back and verified. 10:00:00 0.9% NaCl 100 ml/hr I.V. was administered by Alejandra Artis RN; Per physician; Verbal order read back and verified. 10:00:14 Sedation plan: TIVA Medication:Propofol 10:05:39 Refer to Anesthesia Notes for Sedation Medications was administered by Alejandra Artis RN; ; Verbal order read back and verified. 10:06:15 Procedure started. 10:06:18 Local anesthetic to right femoral artery with Lidocaine 2% by Hieu Gtz MD.INITIAL ACCESS ONLY 10:12:04 MICROPUNCTURE 4FR [employer] (Q71739) opened to sterile field. 10:12:32 Access obtained with 4Fr micropunture. 10:12:36 A 5 Fr sheath was inserted into the Right Femoral artery 10:13:54 A MULTIPACK JL 4.0 5Fr catheter was advanced over the wire and used for Left Coronary Angiography. 10:15:00 Zero performed for pressure channel P1 10:15:29 LCA angiography performed. 10:15:32 Injector settings: Ml/sec: 3, Volume: 6, 10:17:03 Catheter removed. 10:17:09 A MULTIPACK 3DRC 5Fr catheter was advanced over the wire and used for Right Coronary Angiography. 10:18:42 RCA angiography performed. 10:18:45 Injector settings: Ml/sec: 3, Volume: 6, 10:18:56 ACCDominant side:Right 10:21:26 Catheter removed. 10:21:35 A MULTIPACK Pigtail 5 Fr catheter was advanced over the wire and used for LV Angiography. 10:22:24 TUBING High Pressure Extension Tubing (Ulisses) (MC1473C) opened to sterile field. 10:22:25 INFLATOR Merit BasixCompak (JO4820) opened to sterile field. 10:22:34 [place] Verrata Plus pressure wire (55196W) opened to sterile field. 10:22:55 LV hemodynamics recorded. 10:22:57 LV gram done using MERCEDES 10::59 Injector settings: Ml/sec: 5, Volume: 15, 10:23:04 EF : 60 % 10:23:18 Heparin Bolus 2000 units I.V. was administered by Alejandra Artis RN; for anticoagulation; Verbal order read back and verified. 10:23:38 Catheter removed. 10:24:20 A MULTIPACK JL 4.0 5Fr catheter was advanced over the wire and used for Procedure. 10:25:19 FFR/IFR wire advanced. 10:27:17 Wire advanced across lesion. 10:27:21 Baseline FFR 1. 10:29:41 mLAD lesion measured at 0.87 with IFR 10:30:20 Wire redirected to diagonal. 10:30:57 Diag1 lesion measured at 0.89 with IFR 10:31:25 Wire removed. 10:31:35 Catheter removed. 10:31:42 EXOSEAL 5Fr (EX500) opened to sterile field. 10:32:01 Sheath removed intact; hemostasis achieved with Exoseal to the Right Femoral artery. 10:32:03 Procedure ended.(Physican Out) 10:32:12 Fluoroscopy time 04.80 minutes. 10:32:16 Flurop Dose total: 262 10:32:16 Fluoroscopy dose: 262 mGy 10:32:22 Dose Area Product 49099 mGy/cm. 10:32:25 Contrast amount:Isovue 300 70ml. 10:32:27 Maximum allowable dose exceeded? No. 10:32:28 Sharps counted by scrub and verified by R.N. 10:32:29 Insertion/operative site no bleeding no hematoma. 10:32:32 Post-op/insertion site Right Femoral artery dressed using a 4 x 4 and Tegaderm. 10:32:34 Post Procedure Pulses reassessed and unchanged 10:32:37 Post procedure rhythm: unchanged. 10:32:39 Estimated blood loss: 5 ml 10:32:41 Post procedure instruction explained to patient.Patient verbalizes understanding. 10:32:41 Patient needs reinforcement of post procedure teaching. 10:33:27 Procedure type changed to Cath procedure, Diagnostic procedure, LHC, LHC w/Coronaries, FFR/IVUS, FFR Initial, FFR Additional 10:33:28 Procedure and supply charges have been captured, reviewed, submitted and are correct. 10:33:32 Procedure Complication : No complications 10:33:34 Vital chart was stopped 10:33:37 [facility] Findings: MVD- MD will discuss options w/ pt 10:33:39 Operative report dictated upon procedure completion. 10:33:39 See physician's report for complete and final results. 10:33:41 Report given to Med II. 10:33:43 Patient transfered to Med II with Stretcher. 10:33:46 Procedure ended. 10:33:46 Full Disclosure recording stopped 10:33:53 End room use (Document Last) 10:37:31 ACT drawn and resulted at 160 seconds. (normal therapeutic range 180-240 seconds). Device Usage Item Name Manufacture Quantity Catalog Hospital Part Current Mini mal Lot# / Number Charge Number Stock Stock Serial# Code ACIST Syringe Acist 1 51365 111818 841954 215765 20 (98734) Medical Systems Inc Bag Decanter Microtek 1 2001S 647058 74063 919127 5 (2001S) Medical Inc. Medline Cath Medline 1 [id number] 354676 96663 039862 5 Pack ([id number]) ACIST Hand Acist 1 08420 524264 503634 527175 5 Control Medical (14368) Systems Inc ACIST Acist 1 14830 753714 741138 145808 5 Manifold Medical (62423) Systems Inc DIAGNOSTIC Cardinal 1 AS4340 686761 03696 537348 30 Multipack 5Fr Health catheter set (CY5856) Tegaderm 4 x 3M 1 1626W 460483 201975 831212 5 4 (1626W) SHEATH 5FR Terumo 1 TLS282 307547 543131 731777 5 [place] (INJ413) EMERALD Guide Cardinal 1 502-455 748249 990675 753561 5 Wire Health (502-455) MICROPUNCTURE [employer] Medical 1 C07408 634721 201535 182606 5 4FR [employer] (X96554) MULTIPACK JL Cardinal 1 550338 5 4.0 5Fr Health catheter MULTIPACK Cardinal 1 964228 5 3DRC 5Fr Health catheter MULTIPACK Cardinal 1 950289 5 Pigtail 5 Fr Health catheter TUBING High Merit 1 [id number] 523411 51666 172108 10 Pressure Medical Extension Tubing (Ulisses) (EU6499Z) INFLATOR Merit 1 JX5168 307345 060335 086949 15 Merit Medical BasixCompak (KK0282) [place] 1 16721L 793785 872240757 436915 5 Verrata Plus pressure wire (40705C) EXOSEAL 5Fr Cardinal 1 EX500 091769 800136 635096 10 (EX500) Health Signature Audit [place] Stage Time Signature Unsigned Intra-Procedure 10/30/2019 Seema Ugarte 10:34:38 AM RT(R) Intra-Procedure 10/30/2019 Alejandra Artis RN 10:37:43 AM Intra-Procedure 10/30/2019 Hieu Gtz MD 10:38:03 AM Signatures Performing Physician : Signature : Hieu Gtz MD Date : Time : Monitor : Seema Ugarte RT Signature : Date : Time : Nurse : Alejandra Artis RN Signature : Date : Time : [facility] [address] [place] [address]
[~2019-10-28 11:34] MED LIST: BAYER CHEWABLE81 MG PO; FLOVENT HFA 11012 GM INH; KLONOPIN1 MG PO; LISINOPRIL10 MG PO; NORVASC2.5 MG PO; PLAVIX75 MG PO; SYMBICORT 16010.2 GM INH
[2019-10-28 13:35] LABS: HEMATOCRIT 47.2 % (36.0-48.0); HEMOGLOBIN 15.9 g/dL (12-16); LYMPHOCYTES 20.9 % (15-50); MCH 31.2 pg (26.0-34.0); MCHC 33.7 g/dL (31.0-37.0); MCV 92.5 fL (80.0-100.0); MEAN PLATELET VOLUME 9.6 fL (7.4-10.4); PLATELET COUNT 378 10x3/uL (130-400); WBC 10.9 10x3/uL (4.8-10.8)
[2019-10-28 13:43] LABS: APTT 28.5 SECONDS (22.8-39.4); CALC OSMOLALITY 271 mosm/kg (275-300); CALCIUM 9.5 mg/dL (8.5-10.1); CARBON DIOXIDE 23.6 mmol/L (21.0-32.0); CHLORIDE - SERUM 101 mmol/L (98-107); CREATININE - SERUM 0.7 mg/dL (0.6-1.3); GLUCOSE 89 mg/dL (74-106); INR 0.9 (0.85-1.17); POTASSIUM - SERUM 4.2 mmol/L (3.5-5.1); PROTIME 12.1 SECONDS (11.6-15.0); SODIUM 136 mmol/L (136-145); UREA NITROGEN 15 mg/dL (7-18); eGFR NON AFRICAN AMERICAN > 90 mL/min (90-120)
[2019-10-28 14:06] LABS: ALBUMIN 4.1 g/dL (3.4-5.0); ALKALINE PHOSPHATASE 109 U/L (30-120); ALT (SGPT) 14 U/L (10-68); BILIRUBIN - TOTAL 0.52 mg/dL (0.2-1.3); CKMB 4.8 U/L (0.0-3.6); CREATINE KINASE 109 UL (21-215); PROTEIN - SERUM 8.3 g/dL (6.4-8.2)
[2019-10-28 14:10] LABS: TROPONIN-I 1.243 ng/mL (0.000-0.060)
--- NOTE | 2019-10-28 14:21 | NUR ---
RN AND EDP AT PT BEDSIDE. PLAN OF CARE DISCUSSED WITH PT
[2019-10-28 14:39] VITALS: BP 117/78
--- NOTE | 2019-10-28 15:45 | NUR ---
DR WILSON AT PT BEDSIDE.
--- NOTE | 2019-10-28 16:30 | NUR ---
PT AMBULATED TO RESTROOM WITH A STEADY GAIT.
[2019-10-28 18:19] VITALS: BMI 17.5
--- NOTE | 2019-10-28 20:45 | NUR ---
ON INITIAL ROUNDS PT YELLING, CARRYING ON ABOUT NEEDING HER KLONOPIN NOW (1942). EXPLAINED THAT MED CAN BE BROUGHT TO PT, BUT SHE NEEDED TO CALM DOWN. DAUGHTER AT BEDSIDE ALSO TRYING TO CALM PATIENT DOWN. PT VERY AGITATED. WHEN NURSE ATTEMPT TO ASSESS, ASK LEVEL OF PAIN/COMFORT, PT YELLED AT NURSE SAYING NURSE SHOULD KNOW EVERYTHING ABOUT HER BEFORE SHE EVER WALKED INTO ROOM. PT UP AND DOWN AND PACING IN ROOM. C/O SOB, REFUSED OFFERED O2. EXPLAINED THAT IT IS COMMON TO WEAR O2 WHEN IN FOR CHEST PAIN, PT YELLING THAT SHE HAS BEEN HERE ALL DAY, SO WHY DID SHE NEED O2 NOW? ATTEMPTS TO CALM PATIENT DOWN, ONLY AGITATED HER MORE. DAUGHTER STATES SHE WILL CALM HER MOM DOWN. BROUGHT BACK REQUESTED KLONOPIN, AND ALSO GAVE MORPHINE 4MG SIVP FOR HER C/O CHEST PAIN WHEN SHE BREATHS IN AND OUT. RT NOW IN ROOM DOING BREATHING TREATMENT. DECREASED LIGHTS AND STIMULI IN ROOM AND DAUGHTER HAS LEFT FOR THE NIGHT.
[2019-10-28 21:32] LABS: CKMB 4.3 U/L (0.0-3.6); CREATINE KINASE 94 UL (21-215); TROPONIN-I 1.081 ng/mL (0.000-0.060)
--- NOTE | 2019-10-29 03:18 | NUR ---
ATTEMPTED TO AWAKEN PATIENT FOR HER LOVENOX INJECTION. PT BECAME VERY IRATE AND TOLD NURSE TO GO AWAY. MARKED REFUSED.
[2019-10-29 04:01] LABS: HEMATOCRIT 44.6 % (36.0-48.0); HEMOGLOBIN 14.7 g/dL (12-16); LYMPHOCYTES 28.7 % (15-50); MCH 30.8 pg (26.0-34.0); MCV 93.3 fL (80.0-100.0); MEAN PLATELET VOLUME 9.6 fL (7.4-10.4); NEUTROPHILS 65.5 % (40-80); PLATELET COUNT 391 10x3/uL (130-400); RBC 4.78 10x6/uL (4.00-5.40); WBC 8.7 10x3/uL (4.8-10.8)
[2019-10-29 04:23] LABS: ALBUMIN 3.1 g/dL (3.4-5.0); ALKALINE PHOSPHATASE 84 U/L (30-120); ALT (SGPT) 13 U/L (10-68); BILIRUBIN - TOTAL 0.44 mg/dL (0.2-1.3); CALC OSMOLALITY 274 mosm/kg (275-300); CALCIUM 8.7 mg/dL (8.5-10.1); CHLORIDE - SERUM 103 mmol/L (98-107); CKMB 4.6 U/L (0.0-3.6); CREATINE KINASE 85 UL (21-215); CREATININE - SERUM 0.8 mg/dL (0.6-1.3); GLUCOSE 92 mg/dL (74-106); POTASSIUM - SERUM 4.1 mmol/L (3.5-5.1); PROTEIN - SERUM 6.7 g/dL (6.4-8.2); SODIUM 137 mmol/L (136-145); UREA NITROGEN 16 mg/dL (7-18); eGFR NON AFRICAN AMERICAN 80 mL/min (90-120)
[2019-10-29 04:24] LABS: TROPONIN-I 0.714 ng/mL (0.000-0.060)
--- NOTE | 2019-10-29 05:00 | NUR ---
ATTEMPTED TO AWAKEN PT FOR AN ORDERED EKG. PT HOSTILE AND ANGRY AT BEING AWAKENED. TOLD NURSE TO GO AWAY. DOCUMENTING REFUSED.
[2019-10-29 10:06] VITALS: BP 112/78
[2019-10-29 11:24] LABS: ANION GAP 12.6 mmol/L (8-16); CHOL - HDL RATIO 4.2 ratio (2.3-4.1); LDL-HDL RATIO 2.5 ratio (1.5-3.5); POTASSIUM - SERUM 3.6 mmol/L (3.5-5.1)
--- NOTE | 2019-10-29 13:31 | NUR ---
CONSENTS SIGNED FOR [facility]. WILL CONT. PLAN OF CARE.
--- NOTE | 2019-10-29 13:35 | NUR ---
URINE SPECIMEN COLLECTED AND TAKEN TO LAB. WILL MONITOR.
[2019-10-29 13:55] LABS: UDS - AMPHET NEGATIVE QUAL (NEGATIVE); UDS - BARB NEGATIVE QUAL (NEGATIVE); UDS - BENZO NEGATIVE QUAL (NEGATIVE); UDS - COCAINE NEGATIVE QUAL (NEGATIVE); UDS - OPIATE POSITIVE QUAL (NEGATIVE); UDS - PCP NEGATIVE QUAL (NEGATIVE); UDS - THC POSITIVE QUAL (NEGATIVE)
[2019-10-29 13:56] LABS: BILIRUBIN NEGATIVE (NEGATIVE); GLUCOSE NEGATIVE (NEGATIVE); KETONE NEGATIVE (NEGATIVE); NITRITE NEGATIVE (NEGATIVE); UROBILINOGEN NORMAL (NORMAL)
[2019-10-29 13:57] LABS: BACTERIA MANY /hpf (NEGATIVE); EPITHELIAL CELLS 0-5 /hpf (0-5); RED CELLS - URINE 0-5 /hpf (0-5); WHITE CELLS - URINE 25-50 /hpf (NEGATIVE)
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
[2019-10-29 18:06] VITALS: BP 127/73
--- NOTE | 2019-10-29 20:08 | NUR ---
1935 REPORT RECIEVED AND INITITAL ROUNDS COMPLETED. PT RESTING IN BED. CALL LIGHT IN REACH. NO DISTRESS. SEE ASSESSMENT.
[2019-10-29 21:30] VITALS: BP 84/56
--- NOTE | 2019-10-29 23:00 | NUR ---
2230 IV TO LEFT WRIST WAS LEAKING. NEW 22G SITED TO LEFT HAND AND NEW DOSE OF IV MORPHINE 4MG SIVP WAS ADMINISTERED. PT TEACHING ON NPO AFTER MIDNIGHT FOR HEART CATH IN AM. PRE-PROCEDURE INSTRUCTIONS GIVEN. CPOC.
[2019-10-30 04:29] VITALS: BP 92/53
[2019-10-30 05:10] LABS: HEMATOCRIT 41.5 % (36.0-48.0); HEMOGLOBIN 13.7 g/dL (12-16); LYMPHOCYTES 31.8 % (15-50); MCH 30.9 pg (26.0-34.0); MCV 93.5 fL (80.0-100.0); MEAN PLATELET VOLUME 9.3 fL (7.4-10.4); NEUTROPHILS 61.4 % (40-80); PLATELET COUNT 351 10x3/uL (130-400); RBC 4.44 10x6/uL (4.00-5.40); RDW 13.9 % (11.5-14.5); WBC 7.8 10x3/uL (4.8-10.8)
[2019-10-30 05:43] LABS: ALBUMIN 3.3 g/dL (3.4-5.0); ALKALINE PHOSPHATASE 80 U/L (30-120); ALT (SGPT) 16 U/L (10-68); CALC OSMOLALITY 275 mosm/kg (275-300); CALCIUM 8.9 mg/dL (8.5-10.1); CARBON DIOXIDE 28.3 mmol/L (21.0-32.0); CHLORIDE - SERUM 103 mmol/L (98-107); CREATININE - SERUM 0.8 mg/dL (0.6-1.3); GLUCOSE 95 mg/dL (74-106); PROTEIN - SERUM 6.3 g/dL (6.4-8.2); SODIUM 138 mmol/L (136-145); UREA NITROGEN 13 mg/dL (7-18); eGFR NON AFRICAN AMERICAN 80 mL/min (90-120)
[2019-10-30 05:45] LABS: POTASSIUM - SERUM 4.3 mmol/L (3.5-5.1)
--- NOTE | 2019-10-30 07:15 | NUR ---
RECEIVED PT IN BED AAOX4 RESP UNLABORED SKIN W/D COLOR WNL DENIES ANY PAIN OR NEEDS AT THIS TIME WILL CONTINUE TO MONIOTOR
[2019-10-30 09:00] VITALS: BP 94/48
[2019-10-30 15:00] VITALS: BP 117/85
[2019-10-30 17:01] LABS: PLT FUNCT.(P2Y12) PLAVIX 230 PRU (194-418)
--- NOTE | 2019-10-30 20:49 | NUR ---
REPORT RECIEVED AND INITIAL ROUNDS COMPLETED. CALL LIGHT IN REACH. CPOC.
[2019-10-30 21:21] VITALS: BP 100/63
[2019-10-31 00:39] VITALS: BP 104/69
--- NOTE | 2019-10-31 06:00 | NUR ---
NO CHANGE FROM INITIAL SHIFT ASSESSMENT. PT AWAKE/ALERT AND ORIENTED. FAMILY X 1 AT BEDSIDE. CPOC. CALL LIGHT IN REACH.
[2019-10-31 06:27] VITALS: BP 100/74
[2019-10-31 06:39] LABS: ALBUMIN 3.3 g/dL (3.4-5.0); ANION GAP 9.8 mmol/L (8-16); BILIRUBIN - TOTAL 0.31 mg/dL (0.2-1.3); CALCIUM 8.8 mg/dL (8.5-10.1); CARBON DIOXIDE 28.6 mmol/L (21.0-32.0); CREATININE - SERUM 0.9 mg/dL (0.6-1.3); INR 0.97 (0.85-1.17); POTASSIUM - SERUM 4.4 mmol/L (3.5-5.1); PROTEIN - SERUM 6.3 g/dL (6.4-8.2); PROTIME 12.8 SECONDS (11.6-15.0)
[2019-10-31 06:47] LABS: ALBUMIN 3.3 g/dL (3.4-5.0); ALKALINE PHOSPHATASE 72 U/L (30-120); CALC OSMOLALITY 276 mosm/kg (275-300); CALCIUM 8.8 mg/dL (8.5-10.1); CARBON DIOXIDE 28.9 mmol/L (21.0-32.0); CHLORIDE - SERUM 105 mmol/L (98-107); CHOLESTEROL, TOTAL 146 mg/dL (0-200); CREATININE - SERUM 0.8 mg/dL (0.6-1.3); GLUCOSE 87 mg/dL (74-106); PHOSPHOROUS 4.5 mg/dL (2.5-4.9); POTASSIUM - SERUM 4.2 mmol/L (3.5-5.1); PROTEIN - SERUM 6.2 g/dL (6.4-8.2); SODIUM 140 mmol/L (136-145); T4 THYROXIN - FREE 1.31 ng/dL (0.76-1.46); UREA NITROGEN 11 mg/dL (7-18); URIC ACID 6.2 mg/dL (2.6-7.2); eGFR NON AFRICAN AMERICAN 80 mL/min (90-120)
[2019-10-31 06:51] LABS: ALT (SGPT) 16 U/L (10-68)
[2019-10-31 07:24] LABS: HEMATOCRIT 39.2 % (36.0-48.0); HEMOGLOBIN 12.8 g/dL (12-16); LYMPHOCYTES 38.3 % (15-50); MCH 30.9 pg (26.0-34.0); MCHC 32.7 g/dL (31.0-37.0); MCV 94.7 fL (80.0-100.0); MEAN PLATELET VOLUME 10.1 fL (7.4-10.4); NEUTROPHILS 50.4 % (40-80); PLATELET COUNT 319 10x3/uL (130-400); RBC 4.14 10x6/uL (4.00-5.40); RDW 13.7 % (11.5-14.5); WBC 6.6 10x3/uL (4.8-10.8)
[2019-10-31 08:22] VITALS: BP 102/68
[2019-10-31 11:57] VITALS: BP 94/57
[2019-10-31 15:32] LABS: BILIRUBIN NEGATIVE (NEGATIVE); GLUCOSE NEGATIVE (NEGATIVE); KETONE NEGATIVE (NEGATIVE); NITRITE NEGATIVE (NEGATIVE); UROBILINOGEN NORMAL (NORMAL)
[2019-10-31 15:34] LABS: BACTERIA FEW /hpf (NEGATIVE); EPITHELIAL CELLS OCC /hpf (0-5); WHITE CELLS - URINE 0-5 /hpf (NEGATIVE)
[2019-10-31 16:32] VITALS: BP 119/74
--- NOTE | 2019-10-31 19:00 | NUR ---
RECEIVED BEDSIDE REPORT. PATIENT IS ALERT AND ORIENTED, CURRENTLY SITTING ON FLOOR GOING THROUGHT HER CLOSET. RESPIRATIONS ARE EVEN AND UNLABORED. NO S/S OF DISTRESS. NO C/O PAIN. DENIES NEEDS AT THIS TIME. CALL LIGHT WITHIN REACH. WILL CPOC.
[2019-10-31 20:00] VITALS: BP 132/89
[2019-11-01 05:44] LABS: LYMPHOCYTES 38.3 % (15-50); MCH 30.7 pg (26.0-34.0); MCHC 32.6 g/dL (31.0-37.0); MCV 94.3 fL (80.0-100.0); MEAN PLATELET VOLUME 10.2 fL (7.4-10.4); NEUTROPHILS 49.2 % (40-80); PLATELET COUNT 337 10x3/uL (130-400); RBC 4.56 10x6/uL (4.00-5.40); RDW 13.6 % (11.5-14.5); WBC 5.4 10x3/uL (4.8-10.8)
[2019-11-01 06:29] LABS: ALBUMIN 3.6 g/dL (3.4-5.0); ALKALINE PHOSPHATASE 78 U/L (30-120); ALT (SGPT) 19 U/L (10-68); BILIRUBIN - TOTAL 0.54 mg/dL (0.2-1.3); CALC OSMOLALITY 275 mosm/kg (275-300); CALCIUM 9.2 mg/dL (8.5-10.1); CARBON DIOXIDE 31.5 mmol/L (21.0-32.0); CHLORIDE - SERUM 103 mmol/L (98-107); CREATININE - SERUM 0.8 mg/dL (0.6-1.3); GLUCOSE 88 mg/dL (74-106); MAGNESIUM - SERUM 2.1 mg/dL (1.8-2.4); POTASSIUM - SERUM 4.1 mmol/L (3.5-5.1); PROTEIN - SERUM 7.2 g/dL (6.4-8.2); SODIUM 139 mmol/L (136-145); UREA NITROGEN 10 mg/dL (7-18); eGFR NON AFRICAN AMERICAN 80 mL/min (90-120)
--- NOTE | 2019-11-01 07:32 | NUR ---
HAD LONG DISCUSSION WITH THE OF THE PATIENT THIS MORNING. HE STATED THAT IN THE PAST, THE PATIENT WOULD BECOME ANGRY AND HOSTILE WHILE TAKING THE KLONOPIN AND THAT SHE EXHIBITING THE SAME SIDE EFFECTS WHILE TAKING IT DURING THE COURSE OF THIS VISIT. HE ALSO STATED THAT THE PATIENTS ANXIETY WAS BETTER CONTROLLED ON PROZAC BUT THAT IT WOULD DIMINISH HER SEX DRIVE. THE SEEMED CONCERNED BECAUSE THE PATIENT IS BECOMING INCREASINGLY RUDE, DEGRADING, AND SHORT TEMPERED. ENSURED HIM THAT I WOULD NOTIFY THE PHYSICIAN WHO PRESCRIBED IT. WILL CTM.
[2019-11-01 09:00] VITALS: BP 104/66
[2019-11-01 09:24] VITALS: BP 131/89
[2019-11-01 11:00] VITALS: BP 107/67
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
[2019-11-01 15:00] VITALS: BP 111/71
--- NOTE | 2019-11-01 19:00 | NUR ---
RECEIVED BEDSIDE REPORT. PATIENT IS ALERT AND ORIENTED, RESTING COMFORTABLY IN BED. RESPIRATIONS ARE EVEN AND UNLABORED. NO S/S OF DISTRESS. NO C/O PAIN. DENIES NEEDS AT THIS TIME. SIGNIFICANT OTHER AT BEDSIDE.
[2019-11-01 20:00] VITALS: BP 110/66
--- NOTE | 2019-11-01 23:43 | NUR ---
PATIENT BECAME EXTREMELY RUDE AND HOSTILE WHEN THIS RN WENT INTO TO SEE IF SEE NEEDED ANYTHING. PATIENT DEMANDED TO SEE THE CHARGE NURSE ON THE FLOOR WHEN I INFORMED HER THAT I WAS THE CHARGE NURSE. PATIENT UPSET THAT HER PAIN MEDICATION WAS NOT BROUGHT TO HER. I EXPLAINED TO PATIENT THAT HER PAIN MEDICATION WAS NOT SCHEDULED AND ORDERED PRN. SO SHE NEEDED TO ASK FOR IT. PATIENT BEGAN YELLING AGAIN. EXPLAINED TO THE PATIENT AND THE THAT I WILL BRING THE PAIN MEDICATION. WHEN I WENT BACK TO THE ROOM. PATIENT WAS VERY CALM AND APOLOGIZED FOR YELLING. MEDICATION WAS ADMINISTERED.
[2019-11-02] VITALS (56 sets, daily range): BP systolic 97–151; BP diastolic 47–870; Ht 165.1 cm; Wt 38.6 kg
--- NOTE | 2019-11-02 04:32 | NUR ---
RT REPORTED TO THIS NURSE. THAT SHE WENT INTO THE ROOM TO GIVE PATIENT A SCHEDULED BREATHING TREATMENT. RT REPORTED THAT THE PATIENT AND HER WERE HAVING SEX AFTER PATIENT WAS PREPPED FOR HER CABG THIS AM. EXPLAINED TO PATIENT THAT SHE WILL HAVE TO TAKE ANOTHER SHOWER. LINENS CHANGED AND NEW GOWN.
[2019-11-02 05:22] LABS: HEMOGLOBIN 14.5 g/dL (12-16); LYMPHOCYTES 37.9 % (15-50); MCH 30.9 pg (26.0-34.0); MCV 93.8 fL (80.0-100.0); MEAN PLATELET VOLUME 9.6 fL (7.4-10.4); NEUTROPHILS 50.3 % (40-80); PLATELET COUNT 356 10x3/uL (130-400); RBC 4.69 10x6/uL (4.00-5.40); RDW 13.3 % (11.5-14.5); WBC 5.8 10x3/uL (4.8-10.8)
[2019-11-02 05:34] LABS: ALBUMIN 3.7 g/dL (3.4-5.0); ALKALINE PHOSPHATASE 79 U/L (30-120); ALT (SGPT) 23 U/L (10-68); BILIRUBIN - TOTAL 0.42 mg/dL (0.2-1.3); CALC OSMOLALITY 270 mosm/kg (275-300); CALCIUM 9.2 mg/dL (8.5-10.1); CARBON DIOXIDE 30.2 mmol/L (21.0-32.0); CHLORIDE - SERUM 101 mmol/L (98-107); CREATININE - SERUM 0.8 mg/dL (0.6-1.3); GLUCOSE 89 mg/dL (74-106); MAGNESIUM - SERUM 1.9 mg/dL (1.8-2.4); POTASSIUM - SERUM 3.5 mmol/L (3.5-5.1); PROTEIN - SERUM 7.4 g/dL (6.4-8.2); SODIUM 137 mmol/L (136-145); UREA NITROGEN 8 mg/dL (7-18); eGFR NON AFRICAN AMERICAN 80 mL/min (90-120)
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
--- NOTE | 2019-11-02 13:20 | NUR ---
PT ARRIVED IN THE CVICU. PT HOOKED TO MONITORS. PT SEDATED AND ON THE VENTILATOR. 7.5 ETT NOTED 24 AT THE LIP. RIGHT IJ CVL NOTED. SEE IV GTTS IN FLOW SHEET. MIDSTERAL DRESSING C/D/I. SUBSTERNAL CT X2 Y'D INTO A SINGLE CT NOTED CONNECTED TO 20 CM OF H2O SUCION. NO AIR LEAK NOTED. LEFT PERLA DRAIN NOTED COMPRESSED. ALL CT AND DRAINS HAVE BLOODY DRAINAGE NOTED. RIGHT RADIAL MICHELLE NOTED WITH A GOOD WAVE FORM. WRIST PROTECTOR IN PLACE. CAP REFILL <3 SECONDS. FC NOTED WITH CLEAR, YELLOW URINE. RLE HARVEST SITE DRESSING C/D/I. BILATERAL DP AND PT PULSES PALPABLE. PT IN A NSR. VSS AT THIS TIME. WILL CONT 1:1 CARE.
--- NOTE | 2019-11-02 16:03 | NUR ---
DR CRESPO IN THE UNIT. OK TO GIVE SOME MORPHINE.
--- NOTE | 2019-11-02 16:09 | TEE ---
PATIENT:KRISTA TUCKER MEDICAL RECORD: [id number] LOCATION:[place] [address] AGE OF PATIENT: 54 ADMISSION DATE: 10/28/19 SEX: F REFERRING PHYSICIAN: INTERPRETING PHYSICIAN: MARLON IGBBONS MD TRANSESOPHAGEAL ECHOCARDIOGRAM Date: 11/02/19 JAYLA CHARGE Y INDICATIONS: PREMEDICATIONS: PATIENT'S RESPONSE PROCEDURE DOPPLER MEASUREMENTS: LVIT LA PA 97.0 RA LVOT 108 RVOT 68.0 Asc. Ao 126 AV Gradient Peak 6.4 AV Mean 3.6 AV Area 2.2 MV Gradient Peak 4.6 MV Mean 1.9 MV Area INTERPRETATION: Doppler: 2-D: COLOR FLOW DOPPLER NORMAL SALINE STUDY: MISCELLANOUS: DIAGNOSIS: PLAN: Multi Slide Machine Tender:3 Dr. Greene Ornamental Metal Worker: Aleja JARAMILLO COMMENTS: DATE OF SERVICE: 11/02/2019 PROCEDURE: Intraoperative JAYLA. FINDINGS: Preoperatively shows LV internal dimensions and wall thickness appear normal. LV appears to be mildly globally hypo with EF mildly reduced at 40%. Aortic valve is tricuspid with good valve excursion. Left atrium appears normal. Mitral valve appears normal. TRANSESOPHAGEAL ECHOCARDIOGRAM REPORT [id number] BERHANE TUCKER Postoperatively has good contractility of all segments of the LV with LV function 50% or better. Aortic valve continues to appear normal. Normal left atrial dimensions. Normal mitral valve. Trace MR. TRANSINT:[id number] Voice Confirmation ID: [id number] DOCUMENT ID: [id number] at 1609 CC: [id number] DICTATION DATE: 11/02/19 1407 TYPEWRITER TESTER: 11/02/19 1456 ADM IN [place] [id number] [place] [address]
--- NOTE | 2019-11-02 16:50 | NUR ---
OBTAIN ABG PER DR PIÑA. DR PIÑA NOTIFIED OF RESULTS. OK TO EXTUBATE. DR CRESPO CALLED AND AGREES. WILL PLAN TO EXTUBATE. RT NOTIFIED.
--- NOTE | 2019-11-02 17:00 | NUR ---
PT EXTUBATED TO 4L VIA NC. WORKED WITH THE PT WITH THE IS. PT PULLS ABOUT 250 ON HER IS. PT INSTRUCTED TO USE 10X'S/H. PT GIVEN A HEART PILLOW AND EDUCATED TO SPLINT CHEST WHENEVER COUGHIN AND ENCOURATED TCDB. PT HAS A WEAK COUGH.
--- NOTE | 2019-11-02 17:28 | NUR ---
PT DESATURATING TO 89-90%. RT NOTIFIED. PT PLACED ON HIGH FLOW NC TO 10L. WILL CONT POC.
--- NOTE | 2019-11-02 17:48 | NUR ---
PT BECOMING HTN. TITRATED NITRO AND CLEVIPREX. DR CRESPO NOTIFIED. GIVE 2.5 IV LOPRESSOR NOW.
--- NOTE | 2019-11-02 18:27 | NUR ---
PT DESATING TO 88% FIO2 ON THE BIPAP INCREASED TO 100%. RT NOTIFIED. ABG OBTAINED. DR CRESPO AND DR PIÑA PAGED WITH RESULTS. DR PIÑA AND DR CRESPO STATED TO CALL ANESTESIA TO INTUBATE. LILIA VENCES FIRST HYDROPRESS OPERATOR FOR ANESTESIA CALLED AND NOTIFIED. HE IS ON HIS WAY. AT THE PTS BEDSIDE AND AWARE OF THE SITUATION. PATIENT ASL IN AGREEANCE.
--- NOTE | 2019-11-02 18:50 | NUR ---
ANESTESIA AT THE PTS BEDSIDE. 7.0 21 AT THE LIP. BREATHS SOUNDS ASCULTED BILATERALLY. CXR ORDERED. PT TOLERATED WELL.
--- NOTE | 2019-11-02 19:10 | NUR ---
SHIFT ASSESSMENT COMPLETE. PATIENT IS SEDATED DUE TO SEDATION BEING GIVEN FOR INTUBATION. PATIENT IN VIEW OF NURSE. WILL CONTINUE TO MONTIOR.
--- NOTE | 2019-11-02 19:14 | NUR ---
PATIENT RESTLESS IN BED. PROPOFOL INCREASED PER PROTOCOL.
--- NOTE | 2019-11-02 19:40 | NUR ---
PROPOFOL INCREASED DUE TO RESTLESSNESS PER ORDER.
--- NOTE | 2019-11-02 21:53 | NUR ---
CLEVIPREX STARTED PER MD ORDER DUE TO ELEVATED BP.
--- NOTE | 2019-11-02 22:12 | NUR ---
INCREASED CLEVIPREX DUE TO INCREASED BP PER MD ORDER.
--- NOTE | 2019-11-02 22:29 | NUR ---
DR. CRESPO NOTIFIED OF ABG'S. ORDERS TO GO AHEAD WITH THE BICARB AND CALCIUM CHLORIDE ORDERED.
--- NOTE | 2019-11-02 23:00 | NUR ---
REASSESSMENT COMPLETE NO CHANGES NOTED.
[2019-11-03] VITALS (103 sets, daily range): BP systolic 107–162; BP diastolic 54–697
--- NOTE | 2019-11-03 02:11 | NUR ---
PATIENT RESTLESS MOVING AROUND IN BED. NO CHANGES OR DISTRESS NOTED AT THIS TIME. PATIENT IN VIEW OF NURSE. WILL CONTINUE TO MONITOR.
--- NOTE | 2019-11-03 03:00 | NUR ---
REASSESSMENT COMPLETE NO CHANGES NOTED.
--- NOTE | 2019-11-03 06:20 | NUR ---
SUBSTERNAL DRESSING CHANGED AND BETADINE APPLIED TO CT INCISIONS.
[2019-11-03 07:12] LABS: ALBUMIN 3.1 g/dL (3.4-5.0); ALKALINE PHOSPHATASE 54 U/L (30-120); ALT (SGPT) 24 U/L (10-68); BILIRUBIN - TOTAL 0.41 mg/dL (0.2-1.3); CALC OSMOLALITY 281 mosm/kg (275-300); CALCIUM 8.2 mg/dL (8.5-10.1); CARBON DIOXIDE 26.4 mmol/L (21.0-32.0); CHLORIDE - SERUM 107 mmol/L (98-107); CREATININE - SERUM 0.6 mg/dL (0.6-1.3); GLUCOSE 123 mg/dL (74-106); MAGNESIUM - SERUM 1.9 mg/dL (1.8-2.4); POTASSIUM - SERUM 3.8 mmol/L (3.5-5.1); PROTEIN - SERUM 5.8 g/dL (6.4-8.2); SODIUM 142 mmol/L (136-145); UREA NITROGEN 8 mg/dL (7-18); eGFR NON AFRICAN AMERICAN > 90 mL/min (90-120)
--- NOTE | 2019-11-03 07:39 | OP ---
PATIENT NAME: KRISTA TUCKER MEDICAL RECORD: [id number] :69 LOCATION:D.[facility]ER[facility] [id number] ADMISSION DATE:10/28/19 SURGEON: ERIC CRESPO MD DATE OF OPERATION: 11/02/2019 SURGEON: Eric Crespo MD OPERATION PERFORMED: 1. Coronary artery bypass graft times 3 (left internal mammary artery to LAD, reverse saphenous vein graft from aorta to obtuse marginal and aorta to posterior descending artery). 2. Endoscopic saphenous vein harvest. PREOPERATIVE DIAGNOSIS: Coronary artery disease, myocardial infarction, and history of coronary stent. POSTOPERATIVE DIAGNOSIS: Coronary artery disease, myocardial infarction, and history of coronary stent. ANESTHESIA: General endotracheal anesthesia. ESTIMATED BLOOD LOSS: Total cardiopulmonary bypass with Cell Saver retransfusion, one packed red blood cells. COMPLICATIONS: None. SPECIMENS: 1. Left internal mammary lymph node. 2. Lower anterior mediastinal lymph node. CONDITION: Stable. DISPOSITION: CV ICU. OPERATIVE FINDINGS: 1. Severe hyperexpanded lungs bilaterally consistent with long history of smoking. 2. Small internal mammary with some spasm responded to dilatation with excellent flow prior to anastomosis and good Doppler signal after anastomosis and after reversal of heparin. The LAD was a 1.5 mm vessel. 3. Obtuse marginal 2.0 mm with severe disease. Radial artery was small by ultrasound; therefore was not used as a second arterial conduit. The vein was of good quality. 4. Posterior descending artery 2.0 mm. OPERATIVE INDICATION: Myocardial infarction, multivessel coronary artery disease and restenosis. DESCRIPTION OF PROCEDURE: The patient was brought to the operating suite. General anesthesia was obtained, the patient was prepped and draped. Greater saphenous vein harvested endoscopically, right lower extremity. Side branches were divided with electrocautery. The vessel was ligated proximally and distally removed. Side branches were clipped or tied and leakage sites were oversewn. Leg was irrigated and closed in 2 layers. OPERATIVE REPORT [id number] KRISTA TUCKER Median sternotomy incision was made. Subcutaneous tissue divided with electrocautery. The sternum was divided with a saw. The left hemisternum was elevated. Left pleural cavity was entered. Left internal mammary artery and vein was taken down as a pedicle graft. Sternal retractor was placed. Pericardium was opened. Heparin was given. Aorta was cannulated. Dual stage venous cannula was inserted. The internal mammary was clipped and made ready for anastomosis, dilated with a #3 Carlos balloon that was not inflated and papaverine was instilled with good flow and good resultant pulse allowed to beat until time of anastomosis. Distal anastomosis was performed in standard technique. Proximal anastomosis with single cross-clamp technique. Aortic root was de-aired by removing the cross clamp, de-airing the root, tying the proximal anastomosis, deairing the vein graft restoring the flow. Single sutures in the proximals for bleeding. Proximal and distal anastomotic sites inspected for no bleeding fully rewarmed, weaned from cardiopulmonary bypass and stable. The patient was decannulated. The cannula sites were oversewn. Protamine was given. Thorough irrigation was undertaken. Grafts lay appropriately. Hemostasis was ensured. A drain was placed in the mediastinum and left pleural cavity. Ventricular pacing wires were placed. Pericardial fat was loosely reapproximated over the great vessels. Left chest was evacuated and irrigated. The internal mammary harvest site was made hemostatic. Sternum was closed with wires. Fascia was closed. Subcutaneous tissue was closed. Skin was closed. Dermabond was placed. The needle and sponge counts reported correct. The patient was taken to ICU in stable condition.. TRANSINT:[id number] Voice Confirmation ID: [id number] DOCUMENT ID: [id number] ERIC CRESPO MD at 0739 CC: FARZANEH WILSON M.D. and IGNACIO CRUZ [phone] DICTATION DATE: 11/02/19 1630 SOFTWARE ENGINEERING SPECIALIST: 11/02/192058 ADM IN [facility] [address] [id number]
[2019-11-03 07:53] LABS: HEMATOCRIT 37.4 % (36.0-48.0); HEMOGLOBIN 12.6 g/dL (12-16); LYMPHOCYTES 9.3 % (15-50); MCH 31.3 pg (26.0-34.0); MCHC 33.7 g/dL (31.0-37.0); MCV 92.8 fL (80.0-100.0); NEUTROPHILS 79.9 % (40-80); RBC 4.03 10x6/uL (4.00-5.40); RDW 14.2 % (11.5-14.5)
[2019-11-03 07:56] LABS: PLATELET COUNT 215 10x3/uL (130-400)
--- NOTE | 2019-11-03 08:21 | NUR ---
0715: AROUSES TO VERBAL STIMULI AND FOLLOWS COMMANDS. SPO2 86%. FIO2 INCREASED TO 80%. 0730: DR. CRESPO HERE. PLASMALYTE DECREASED TO 30 AND PEEP INCREASED TO 8. 0745: FIO2 ON ABGS 52. FIO2 INCREASED TO 85%. 0800: SPO2 89%. FIO2 INCREASED TO 90%.
--- NOTE | 2019-11-03 09:36 | NUR ---
Nutrition follow-up: Pt s/p CABG POD 1 Clear liquids started Labs reviewed Wt: 84# BMI: 14 Using GLIM criteria Phenotypic 1. BMI: 14.0 2. Observed reduced muscle mass, subcutaneous fat loss from all extremeties, scapulas, calvicles, shoulders. Etiologic 1. Reduced nutritional intake < 50% intake of estimated energy needs for > 1 week 2. Pt s/p CABG POD 1 Using GLIM criteria, pt is assessed with severe malnutrition based on BMI of 14.0 with reduced muscle mass. RDN will closely monitor patients diet advancemenet and tolerance. RDN following.
--- NOTE | 2019-11-03 10:41 | NUR ---
0845: DR. PIÑA HERE. REC'D ORDER FOR FENTANYL GTT. NO CHANGES IN VENT SETTINGS. 0925: FENTANYL GTT STARTED. 1030: DR. REYNAGA HERE. CONDITION UPDATE GIVEN. NO NEW ORDERS
--- NOTE | 2019-11-03 16:21 | NUR ---
1611: DR. PIÑA PHONED REQUESTING PATIENT UPDATE. CONDITION UPDATE GIVEN. NEW ORDERS REC'D.
--- NOTE | 2019-11-03 17:43 | NUR ---
1635: OGT PLACED. PLACEMENT VERIFIED WITH AIR BOLUS. X RAY ORDERED TO ENSURE PLACEMENT PRIOR TO TUBE FEEDING STARTED. 1645: FIO2 DECREASED TO 75%.
--- NOTE | 2019-11-03 19:00 | NUR ---
REPORT RECEIVED. INITIAL ASSESSMENT COMPLETE. PT ORALLY INTUBATED MECHANICALLY VENTILATED SEE RESP NOTES FOR VENT SETTINGS AND CHANGES. BREATH SOUNDS CLEAR TO AUSCULTATE. S1S2 CM READING SR WITHOUT ECTOPY ALARMS ON AND AUDIBLE. PT ON NITROGLYCERIN GTT FOR BP PER DAY SHIFT REPORT URINE OUTPUT HAS BEEN MINIMAL AND DR CRESPO STATED OK TO LET BP TREND UP TO 150-160'S AND NS BOLUS OF 250 NS ORDERED THIS IS INFUSING NOW. RIGHT RAD ARTLINE WITH GOOD WAVE FORM WRIST PROTECTOR IN PLACE. RIGH IJ CORDIS DIPRIVAN,FENTANYL, NITROGLYCERIN AND NS 250 CC BOLUS INFUSING NOW PLASMALYTE INFUSING. SEE IV DRIP SHEET FOR DRIP CHANGES. MATTHEWS WITH CLEAR YELLOW URINE NOTED. CHEST DRESSINGS CDI, CT SITES CDI AND PERLA NOTED WITH SEROSANGUINOUS DRAINAGE WITH BULB COMPRESSED SEE FLOWSHEET FOR FULL ASSESSMENT. CPOC
--- NOTE | 2019-11-03 20:00 | NUR ---
REQUESTED TUBE FEEDING PUMP FROM [employer]PA[employer]. NO PUMP AVAILABLE HERE OR ICU WILL START TUBE FEEDING WHEN PUMP AVAILABLE
--- NOTE | 2019-11-03 21:00 | NUR ---
SPOUSE AT BEDSIDE UPDATE GIVEN
--- NOTE | 2019-11-03 21:30 | NUR ---
SPOKE WITH MALDONADO PALACIOSPRESCHOOL TEACHER AIDE REQUESTED TUBE FEEDING PUMP
--- NOTE | 2019-11-03 23:00 | NUR ---
REASSESSMENT COMPLETE. WEANING NITRO GTT PT BP STABLE EXCEPT WITH ANXIETY. PT SBP GOES FROM 120'S TO 170'S EASILY AGITATED ANXIOUS SEE IV FLOWSHEET FOR DRIP CHANGES. CPOC
[2019-11-04] VITALS (40 sets, daily range): BP systolic 108–171; BP diastolic 62–96
--- NOTE | 2019-11-04 01:45 | NUR ---
PT BP 171/96 ATTEMPT TO CALM PT TALKING UNSUCCESSFUL BOLUS OF DIPRIVAN GIVEN
--- NOTE | 2019-11-04 03:00 | NUR ---
REASSESSMENT COMPLETE SEE FLOWSHEET. CONTINUE TO NEED DIPRIVAN DRIP CHANGES WITH ANXIETY CAUSES BP UP TO 170'S
--- NOTE | 2019-11-04 03:15 | NUR ---
TUBE FEEDING STARTED JUST RECEIVED FEEDING PUMP.
--- NOTE | 2019-11-04 05:00 | NUR ---
PTS SPOUSE AT BEDSIDE FOR VISITATION UPDATED QUESTIONS ANSWERED
--- NOTE | 2019-11-04 06:00 | NUR ---
COMPLETE CHG AND LINEN CHANGE. CT DRESSING SITES CHANGED. PLACED MEPILEX SACRUM ON PT SKIN INTACT.
[2019-11-04 06:07] LABS: BASOPHILS 0.1 % (0-2); EOSINOPHILS 0.4 % (0-7); HEMATOCRIT 34.7 % (36.0-48.0); HEMOGLOBIN 11.4 g/dL (12-16); IMMATURE GRANULOCYTES 0.3 % (0-5); LYMPHOCYTES 9.6 % (15-50); MCH 30.8 pg (26.0-34.0); MCHC 32.9 g/dL (31.0-37.0); MCV 93.8 fL (80.0-100.0); MEAN PLATELET VOLUME 10.8 fL (7.4-10.4); MONOCYTES 8.2 % (2-11); NEUTROPHILS 81.4 % (40-80); PLATELET COUNT 195 10x3/uL (130-400); RDW 13.9 % (11.5-14.5); WBC 14.4 10x3/uL (4.8-10.8)
[2019-11-04 06:31] LABS: ALBUMIN 2.7 g/dL (3.4-5.0); ALKALINE PHOSPHATASE 62 U/L (30-120); BILIRUBIN - TOTAL 0.32 mg/dL (0.2-1.3); CALC OSMOLALITY 283 mosm/kg (275-300); CALCIUM 8.1 mg/dL (8.5-10.1); CARBON DIOXIDE 27.3 mmol/L (21.0-32.0); CHLORIDE - SERUM 108 mmol/L (98-107); CREATININE - SERUM 0.6 mg/dL (0.6-1.3); GLUCOSE 103 mg/dL (74-106); POTASSIUM - SERUM 4.1 mmol/L (3.5-5.1); PROTEIN - SERUM 5.5 g/dL (6.4-8.2); SODIUM 143 mmol/L (136-145); UREA NITROGEN 10 mg/dL (7-18); eGFR NON AFRICAN AMERICAN > 90 mL/min (90-120)
[2019-11-04 06:33] LABS: ALT (SGPT) 42 U/L (10-68)
--- NOTE | 2019-11-04 07:51 | NUR ---
11/03/19 1830: LATE ENTRY. DR. CRESPO NOTIFIED OF LOW URINE OUTPUT OVER LAST 3 HOURS. NEW ORDERS REC'D.
--- NOTE | 2019-11-04 11:20 | NUR ---
0700: REC'D REPORT. ASSESSMENT COMPLETE. RESP AT BEDSIDE. FIO2 DECREASED TO 70%. 0740: PROPOFOL DECREASED TO 40MCG/KG/MIN. 0945: DR. PIÑA HERE. CONDITION UPDATE GIVEN. NEW ORDERS REC'D. TUBEFEEDING INCREASED TO 30CC/HR. WEANING ORDERS GIVEN TO WEAN PEEP TO 6 BEFORE WEANING FIO2 FURTHER. 1100: PEEP DECREASED TO 7. 1115: PEEP DECREASED TO 6. 1120: FIO2 DECREASED TO 65%.
--- NOTE | 2019-11-04 13:00 | NUR ---
FIO2 DECREASED TO 60%.
--- NOTE | 2019-11-04 18:30 | NUR ---
DR. PIÑA PHONED FOR CONDITION UPDATE.
--- NOTE | 2019-11-04 19:15 | NUR ---
REPORT RECEIVED INITIAL SHIFT ASSESSMENT COMPLETE. PT ALERT EYES OPEN NODS HEAD APPROPRIATELY TO QUESTIONS FOLLOWS COMMANDS. MUCH CALMER THAN LAST PM. ORALLY INTUBATED MECHANICALLY VENTILATED SEE RT NOTES AND ORDERS FOR VENT CHANGES AND SETTINGS. FENTANYL AND DIPRIVAN FOR SEDATION SEE IV FLOWSHEET FOR DRIP CHANGES. CHEST SOUNDS CLEAR DIMINISHED TO BASES. O2 SAT 95%. OGT WITH TUBE FEEDING INFUSING. S1S2 CM READING SR WITHOUT ECTOPY ALARMS ON AND AUDIBLE. URINE OUTPUT MINIMAL BUT MORE THAN LAST PM. CONCENTRATED YELLOW TO BSD. CHEST DRESSING CDI CT SITES DRESSINGS CDI. RIGHT RAD ARTLINE WITH GOOD WAVEFORM CORRELATING WITH CUFF. SEE FLOWSHEET FOR FULL ASSESSMENT. TEDS/SCD IN PLACE. VSS AT THIS TIME WILL CONTINUE TO MONITOR
--- NOTE | 2019-11-04 21:00 | NUR ---
PTS AT BEDSIDE FOR VISITATION. UPDATE GIVEN AND QUESTIONS ANSWERED.
--- NOTE | 2019-11-04 21:16 | NUR ---
PT EMOTIONAL CRYING, RESP RATE UP TO 36 O2 SAT DOWN TO 92%. AT BEDSIDE CONSOLING PT. INCREASED FENTANYL TO 80 MCG
--- NOTE | 2019-11-04 23:00 | NUR ---
REASSESSMENT COMPLETE NO CHANGES SUCTIONED LARGE AMOUNT CLEAR SECRETIONS ORALLY AND VIA ETT. ORAL CARE PROVIDED
[2019-11-05] VITALS (53 sets, daily range): BP systolic 107–170; BP diastolic 59–802
--- NOTE | 2019-11-05 02:30 | NUR ---
PT AGITATED ANXIOUS HEART RATE UP TO 110'S ELEVATED BP O2 SAT DOWN TO 91% AND RR 30'S. BOLUS GIVEN OF FENTANYL 25 MCG.
--- NOTE | 2019-11-05 04:00 | NUR ---
COMPLETE CHG BATH AND LINEN CHANGE. DRESSINGS CHANGED. CHEST TUBE INCISION SITES SWABBED WITH BETADINE COVERED WITH GAUZE AND LARGE TEGADERM. TEMP PACER WIRES COVERED WITH BIOPATCH.
--- NOTE | 2019-11-05 05:15 | NUR ---
PTS AT BEDSIDE FOR VISITATION
--- NOTE | 2019-11-05 06:00 | NUR ---
AM LAB DRAWN
[2019-11-05 06:25] LABS: BASOPHILS 0.1 % (0-2); EOSINOPHILS 1.1 % (0-7); HEMATOCRIT 32.9 % (36.0-48.0); HEMOGLOBIN 10.8 g/dL (12-16); IMMATURE GRANULOCYTES 0.4 % (0-5); LYMPHOCYTES 6.8 % (15-50); MCH 30.9 pg (26.0-34.0); MCHC 32.8 g/dL (31.0-37.0); MCV 94.3 fL (80.0-100.0); MEAN PLATELET VOLUME 10.4 fL (7.4-10.4); MONOCYTES 7.9 % (2-11); NEUTROPHILS 83.7 % (40-80); PLATELET COUNT 194 10x3/uL (130-400); RBC 3.49 10x6/uL (4.00-5.40); RDW 13.8 % (11.5-14.5); WBC 14.1 10x3/uL (4.8-10.8)
[2019-11-05 07:08] LABS: ALBUMIN 2.4 g/dL (3.4-5.0); ALKALINE PHOSPHATASE 67 U/L (30-120); ALT (SGPT) 36 U/L (10-68); BILIRUBIN - TOTAL 0.38 mg/dL (0.2-1.3); CALC OSMOLALITY 279 mosm/kg (275-300); CHLORIDE - SERUM 107 mmol/L (98-107); GLUCOSE 108 mg/dL (74-106); POTASSIUM - SERUM 3.8 mmol/L (3.5-5.1); PROTEIN - SERUM 5.5 g/dL (6.4-8.2); SODIUM 141 mmol/L (136-145); UREA NITROGEN 8 mg/dL (7-18)
[2019-11-05 07:09] LABS: CREATININE - SERUM 0.4 mg/dL (0.6-1.3); eGFR NON AFRICAN AMERICAN > 90 mL/min (90-120)
--- NOTE | 2019-11-05 09:24 | NUR ---
0900: DR. PIÑA HERE. NEW ORDERS REC'D. 0915: FENTANYL DECREASED TO 25MCG/HR AND PROPOFOL DECREASED TO 30MCG/KG/MIN. PLAN TO PLACE ON CPAP AND POSSIBLY EXTUBATE TODAY. FIO2 REMAINS @ 60%.
--- NOTE | 2019-11-05 12:38 | NUR ---
1045: PLACED ON CPAP /. PROPOFOL DECREASED TO 10MCG/KG/MIN. FENTANYL OFF. TUBEFEEDING DC'D. 1100: PROPOFOL DECREASED TO 5 MCG/KG/MIN. 1145: PROPOFOL DC'D. 1148: ABGS AND EXTUBATION PARAMETERS CALLED TO DR. PIÑA. NEW ORDERS REC'D. 1200: EXTUBATED AND PLACED ON BIPAP / AND FIO2 @ 40%.
--- NOTE | 2019-11-05 19:00 | NUR ---
REPORT RECEIVED ASSESSMENT PER FLOWSHEET. CM READING SR WITHOUT ECTOPY ALARMS ON AND AUDIBLE. NITRO GTT FOR BLOOD PRESSURE. BED LOW POSITION CL IN REACH VSS WILL CONTINUE TO MONITOR
--- NOTE | 2019-11-05 21:00 | NUR ---
NITRO GTT OFF WILL CONTINUE TO MONITOR
--- NOTE | 2019-11-05 23:30 | NUR ---
ANSWERED PTS CALL LIGHT SHE IS REQUESTING PAIN PILL SEE EMAR PRN MEDS
[2019-11-06] VITALS (27 sets, daily range): BP systolic 123–166; BP diastolic 69–102
--- NOTE | 2019-11-06 03:00 | NUR ---
REASSESSMENT COMPLETE NO CHANGES CPOC
--- NOTE | 2019-11-06 06:30 | NUR ---
PT UP TO SITTING ON SIDE OF BED
[2019-11-06 06:42] LABS: ALBUMIN 2.3 g/dL (3.4-5.0); ALKALINE PHOSPHATASE 72 U/L (30-120); ALT (SGPT) 31 U/L (10-68); BILIRUBIN - TOTAL 0.62 mg/dL (0.2-1.3); CALC OSMOLALITY 271 mosm/kg (275-300); CALCIUM 8.2 mg/dL (8.5-10.1); CHLORIDE - SERUM 104 mmol/L (98-107); CREATININE - SERUM 0.5 mg/dL (0.6-1.3); GLUCOSE 85 mg/dL (74-106); POTASSIUM - SERUM 3.8 mmol/L (3.5-5.1); PROTEIN - SERUM 5.7 g/dL (6.4-8.2); SODIUM 137 mmol/L (136-145); UREA NITROGEN 9 mg/dL (7-18); eGFR NON AFRICAN AMERICAN > 90 mL/min (90-120)
--- NOTE | 2019-11-06 07:00 | NUR ---
REPORT RECEVIED FROM THE OFF GOING RN. SEE ASSESSMENT IN THE PTS FLOW SHEET. VSS AT THIS TIME. CALL LIGHT IN REACH. WILL CONT POC.
[2019-11-06 07:11] LABS: BASOPHILS 0.3 % (0-2); EOSINOPHILS 2.5 % (0-7); HEMATOCRIT 32.7 % (36.0-48.0); HEMOGLOBIN 10.6 g/dL (12-16); IMMATURE GRANULOCYTES 0.1 % (0-5); LYMPHOCYTES 11.7 % (15-50); MCH 30.7 pg (26.0-34.0); MCHC 32.4 g/dL (31.0-37.0); MCV 94.8 fL (80.0-100.0); MEAN PLATELET VOLUME 11.1 fL (7.4-10.4); MONOCYTES 10.5 % (2-11); NEUTROPHILS 74.9 % (40-80); RBC 3.45 10x6/uL (4.00-5.40); RDW 13.4 % (11.5-14.5)
[2019-11-06 07:12] LABS: PLATELET COUNT 235 10x3/uL (130-400); WBC 9.7 10x3/uL (4.8-10.8)
--- NOTE | 2019-11-06 08:31 | NUR ---
WAITING ON ASA FROM THE PHARMACY TO GIVE WITH AM MED PASS. PT'S BREAKFAST TRAY PROVIDED. VSS. CALL LIGHT IN REACH. WILL CONT POC.
--- NOTE | 2019-11-06 10:09 | NUR ---
KANDY AND MICHELLE GAMING PT TOLERATED WELL.
--- NOTE | 2019-11-06 10:17 | NUR ---
PRN HYDRALAZINE GIVEN FOR HYPERTENSION.
--- NOTE | 2019-11-06 10:32 | NUR ---
NUTRITION F/U CHART REVIEWED, PT VISIT. EXTUBATED AND TOLERATING FULL LIQUID DIET. PT REPORTS GOOD INTAKE BREAKFAST. WILL MONITOR DIET ADVANCEMENT, PO INTAKE. RD FOLLOWING
--- NOTE | 2019-11-06 11:57 | NUR ---
DR HUITRON AT THE PTS BEDSIDE. INSTRUCTED HOW TO USE FLUTTER VALVE.
--- NOTE | 2019-11-06 12:42 | NUR ---
EMPTIED 90ML OUT OF PERLA DRAIN. PT VOIDED ABOUT 75ML ON BSC. NO OTHER NEEDS AT THIS TIME.
--- NOTE | 2019-11-06 13:14 | NUR ---
PHYSICAL THERAPY IN TO WALK PT.
--- NOTE | 2019-11-06 13:53 | NUR ---
PHYSICAL THERAPY STATED PT WALKED 100FT. TOLERATED WELL.
--- NOTE | 2019-11-06 14:23 | NUR ---
PT ASSISTED BACK TO BED PER DR CRESPO'S NURSE, ROBERTO, SO THEY CAN PULL CHEST TUBE.
--- NOTE | 2019-11-06 14:45 | NUR ---
CHEST TUBE REMOVED PER DR CRESPO. PERLA DRAIN STILL IN PLACE.
--- NOTE | 2019-11-06 15:35 | NUR ---
GAVE NORVASC 2.[address] CRESPO. PT ASSISTED BACK TO CHAIR. PT TOLERATED WELL.
--- NOTE | 2019-11-06 17:24 | NUR ---
ASSISTED PT TO BSC. ONCE DONE, GOT PT TO BED. POSITIONED FOR COMFORT. PT WORKED ON HER FLUTTER VALVE. GAVE HYDRALAZINE D/T HIGH BP. WILL CONTINUE TO MONITOR. CALL LIGHT IN REACH.
--- NOTE | 2019-11-06 17:58 | NUR ---
NITRO RESTARTED PER DR CRESPO D/T PT'S BP STAYING ELEVATED. WILL CONTINUE TO MONITOR.
--- NOTE | 2019-11-06 19:00 | NUR ---
SHIFT ASSESSMENT COMPLETED. PT CARE ASSUMED, MONITORS ON AND WORKING, VSS, SBP 125, NITRO DRIP TURNED OFF AT THIS TIME. PT AWAKE AND ALERT, NO SIGNS/SYMPTOMS OF PAIN OR DISCOMFORT NOTED, INCENTIVE SPIROMETER AND FLUTTER VALVE AT BEDSIDE TABLE, BOTH DONE AT THIS TIME, PT TOLERATED WELL, CALL LIGHT WITHIN REACH SEE FLOW SHEET FOR FURTHER DETAILS. WILL CONTINUE TO OBSERVE.
--- NOTE | 2019-11-06 21:00 | NUR ---
PT LYING IN BED RESTING, MONITORS ON AND WORKING. PT AWAKE AND ALERT, FAMILY AT BEDSIDE. NO SIGNS/SYMPTOMS OF PAIN OR DISCOMFORT NOTED. CALL LIGHT WITHIN REACH, WILL CONTINUE TO OBSERVE.
--- NOTE | 2019-11-06 23:00 | NUR ---
NO CHANGES, SEE FLOW SHEET FOR FURTHER DETAILS. WILL CONTINUE TO OBSERVE.
[2019-11-07] VITALS (68 sets, daily range): BP systolic 100–176; BP diastolic 55–108
--- NOTE | 2019-11-07 01:00 | NUR ---
PT RESTING, MONITORS ON AND WORKING. PT ASSISTED TO BATHROOM WITH MINIMAL ASSIST. PT TOLERATED WELL. AND ASSISTED BACK INTO BED. CALL LIGHT WITHIN REACH, IS AND FLUTTER VALVE DONE AT THIS TIME WELL. WILL CONTINUE TO OBSERVE.
--- NOTE | 2019-11-07 03:00 | NUR ---
PT LYING IN BED RESTING, MONITORS ON AND WORKING, VSS. CALL LIGHT WITHIN REACH, WILL CONTINUE TO OBSERVE. SEE FLOW SHEET FOR FURTHER DETAILS.
--- NOTE | 2019-11-07 04:00 | NUR ---
PT UP TO BATHROOM, AND ASSITED BACK INTO CHAIR, MONITORS ON AND WORKING, VSS, CALL LIGHT WITHIN REACH, FLUTTER VALVE AND IS DONE MULTIPLE TIMES THROUGHOUT THIS SHIFT. WILL CONTINUE TO OBSERVE.
[2019-11-07 06:17] LABS: BASOPHILS 0.2 % (0-2); HEMATOCRIT 35.5 % (36.0-48.0); HEMOGLOBIN 11.5 g/dL (12-16); IMMATURE GRANULOCYTES 0.2 % (0-5); LYMPHOCYTES 14.7 % (15-50); MCH 30.1 pg (26.0-34.0); MCHC 32.4 g/dL (31.0-37.0); MCV 92.9 fL (80.0-100.0); MEAN PLATELET VOLUME 10.2 fL (7.4-10.4); MONOCYTES 9.2 % (2-11); NEUTROPHILS 73.7 % (40-80); RBC 3.82 10x6/uL (4.00-5.40); RDW 13.1 % (11.5-14.5)
[2019-11-07 06:28] LABS: PLATELET COUNT 307 10x3/uL (130-400)
--- NOTE | 2019-11-07 06:30 | NUR ---
CHG BATH AND LINEN CHANGE DONE, SBP OVER 160 DESPITE PRN BP AND PAIN MEDS. NITRO BACK ON AT 5MCG AT THIS TIME. WILL CONTINUE TO OBSERVE.
[2019-11-07 07:14] LABS: ALBUMIN 2.5 g/dL (3.4-5.0); ALKALINE PHOSPHATASE 71 U/L (30-120); ALT (SGPT) 26 U/L (10-68); BILIRUBIN - TOTAL 0.52 mg/dL (0.2-1.3); CALC OSMOLALITY 276 mosm/kg (275-300); CARBON DIOXIDE 26.5 mmol/L (21.0-32.0); CHLORIDE - SERUM 106 mmol/L (98-107); CREATININE - SERUM 0.5 mg/dL (0.6-1.3); GLUCOSE 99 mg/dL (74-106); POTASSIUM - SERUM 4.2 mmol/L (3.5-5.1); PROTEIN - SERUM 6.1 g/dL (6.4-8.2); SODIUM 140 mmol/L (136-145); UREA NITROGEN 8 mg/dL (7-18); eGFR NON AFRICAN AMERICAN > 90 mL/min (90-120)
--- NOTE | 2019-11-07 07:22 | NUR ---
INCREASED NITRO PER ORDERS FOR ELEVATED BP. REPORT RECEIVED. PT SITTING UP IN CHAIR WITH FAMILY MEMBER AT BEDSIDE. PT HAS A RIGHT IJ CENTRAL LINE. SHE IS ON HIGH FLOW O2 AT 7L. PT HAS PERLA DRAIN AND TPM WIRES. HARVEST SITE TO RLE. OPEN TO AIR. CLEAN, DRY.
--- NOTE | 2019-11-07 09:11 | NUR ---
PT SITTING UP IN CHAIR. NITRO BEING TITRATED TO HELP WITH ELEVATED BP. MONITORS ON. CALL LIGHT IN REACH.
--- NOTE | 2019-11-07 10:30 | NUR ---
PT UP WALKING IN HALLWAY WITH PHYSICAL THERAPY.
--- NOTE | 2019-11-07 10:46 | NUR ---
DR ELANA COWAN ON PT.
--- NOTE | 2019-11-07 13:23 | NUR ---
IV LOPRESSOR GIVEN PER DR CRESPO AND PT'S BP STAYING ELEVATED. WILL CONTINUE TO MONITOR.
--- NOTE | 2019-11-07 17:37 | NUR ---
PT ASSISTED TO BSC THEN ASSISTED TO BED. BP CURRENTLY 124/79. DENIES ANY NEEDS AT THIS TIME. PT HOOKED BACK UP TO MONITORS AND POSITIONED IN BED FOR COMFORT. CALL LIGHT IN REACH.
--- NOTE | 2019-11-07 19:30 | NUR ---
PT RECEIVED WITH EYES OPEN SITTING UP IN BED. ALERT AND ORIENTED. ASSIST GIVEN TO BATHROOM. BACK IN BED, NO S/S OF DISTRESS. CALL LIGHT IN RECH. WILL CONTINUE TO OBSERVE.
--- NOTE | 2019-11-07 22:02 | MORECARE ---
CASE MANAGEMENT DISCHARGE SUMMARY PATIENT: KRISTA TUCKER UNIT: [id number] ADM DATE: 10/28/19 AGE: 54 : 69 SEX: F ROOM/BED: [facility] AUTHOR: JENNIFER MUSE PHYSICIAN: REFERRING PHYSICIAN: MARLON MCDONNELL MD DATE OF SERVICE: 11/07/19 Discharge Plan Patient Name: KRISTA TUCKER [facility] [facility] 1965 Planned Disposition: Home Anticipated Discharge Date: Discharge Date: Expected LOS: Initial Reviewer: [email or web address] Initial Review Date: 11/07/2019 Generated: 11/07/19 11:02 pm DCPIA - Discharge Planning Initial Assessment Updated by [email or web address]: Sana Soto on 11/07/19 10:02 pm * Is the patient Alert and Oriented? Yes * How many steps to enter\exit or inside your home? * PCP [facility] * Pharmacy [facility] * Preadmission Environment Home with Family * ADLs Independent * Equipment Nebulizer * List name and contact numbers for known caregivers / representatives who currently or will assist patient after discharge: DARRYL TUCKER - SPOUSE- [phone], * Verbal permission to speak to the caregivers and representatives has been obtained from the patient. Yes * Community resources currently utilized None * Additional services required to return to the preadmission environment? No * Can the patient safely return to the preadmission environment? Yes * Has this patient been hospitalized within the prior 30 days at any hospital? No Patient Name: KRISTA TUCKER Page [phone] at 2202 All edits/amendments must be made on the electronic document DICTATION DATE: 11/07/192201 EVENT MANAGEMENT CONSULTANT: PILO 11/07/192201 RPT#: [id number] DC DATE: STATUS: ADM IN [facility] [address] [place] [address] END OF REPORT
--- NOTE | 2019-11-07 22:09 | MORECARE ---
CASE MANAGEMENT DISCHARGE SUMMARY PATIENT: KRISTA TUCKER UNIT: [id number] ADM DATE: 10/28/19 AGE: 54 : 69 SEX: F [facility] AUTHOR: MICHA,DOC PHYSICIAN: REFERRING PHYSICIAN: MARLON MCDONNELL MD DATE OF SERVICE: 11/07/19 Discharge Plan Patient Name: KRISTA TUCKER Facility: [facility]:[place] : 1965 Planned Disposition: Home Anticipated Discharge Date: Discharge Date: Expected LOS: Initial Reviewer: [email or web address] Initial Review Date: 11/07/2019 Generated: 11/07/19 11:09 pm Comments DCP- Discharge Planning Updated by [email or web address]: Sana Soto on 11/07/19 9:[address] Patient Name: KRISTA TUCKER Admission Status: ER Accout number: [id number] Admission Date: 10-28-2019 : 1965 Admission Diagnosis:CHEST PAIN, UNSPECIFIED Attending: NORMAN Current LOS: 10 Anticipated DC Date: Planned Disposition: Home Primary Insurance: MEDICAID [place] Discharge Planning Comments: CM met with patient to complete initial dc planning assessment. CM educated patient on the CM role and verbal consent given by patient to complete assessment. Patient lives at home with family. Patient is independent. At discharge patient plans to return home and feels this is a safe discharge. CM discussed availability of home health, rehab services, and medical equipment. Patient will have family to transport home. Patient denied known discharge needs at this time. Patient may need walk test if requiring 02. CM will continue to follow and will assist as needed with dc plans/needs Pack Out Operator: Sana Soto DCPIA - Discharge Planning Initial Assessment Updated by [email or web address]: Sana Soto on 11/07/19 10:02 pm * Is the patient Alert and Oriented? Yes * How many steps to enter\exit or inside your home? * PCP [facility] * Pharmacy [facility] * Preadmission Environment Home with Family * ADLs Independent * Equipment Nebulizer * List name and contact numbers for known caregivers / representatives who currently or will assist patient after discharge: DARRYL TUCKER - SPOUSE- [phone], * Verbal permission to speak to the caregivers and representatives has been obtained from the patient. Yes * Community resources currently utilized None * Additional services required to return to the preadmission environment? No * Can the patient safely return to the preadmission environment? Yes * Has this patient been hospitalized within the prior 30 days at any hospital? No Last DP export: 11/07/19 9:02 p Patient Name: KRISTA TUCKER Page [phone] at 220 All edits/amendments must be made on the electronic document DICTATION DATE: 11/07/192208 TUMBLE TAILSTOCK TURRET LATHE OPERATOR: PILO 11/07/192208 RPT#: [id number] DC DATE: STATUS: ADM IN [facility] [address] [place] [address] END OF REPORT
--- NOTE | 2019-11-07 22:50 | NUR ---
PT IN BED RESTING. NO S/S OF DISTRESS NOTED. CALL LIGHT IN REACH. WILL CONTINUE TO OBSERVE.
[2019-11-08] VITALS (75 sets, daily range): BP systolic 101–186; BP diastolic 69–120
[2019-11-08 06:26] LABS: ALBUMIN 2.6 g/dL (3.4-5.0); ALKALINE PHOSPHATASE 72 U/L (30-120); ALT (SGPT) 26 U/L (10-68); BILIRUBIN - TOTAL 0.45 mg/dL (0.2-1.3); CALC OSMOLALITY 275 mosm/kg (275-300); CALCIUM 8.8 mg/dL (8.5-10.1); CARBON DIOXIDE 27.3 mmol/L (21.0-32.0); CHLORIDE - SERUM 103 mmol/L (98-107); CREATININE - SERUM 0.6 mg/dL (0.6-1.3); GLUCOSE 142 mg/dL (74-106); POTASSIUM - SERUM 3.8 mmol/L (3.5-5.1); PROTEIN - SERUM 6.4 g/dL (6.4-8.2); SODIUM 138 mmol/L (136-145); UREA NITROGEN 8 mg/dL (7-18); eGFR NON AFRICAN AMERICAN > 90 mL/min (90-120)
[2019-11-08 07:30] LABS: BASOPHILS 0.4 % (0-2); EOSINOPHILS 2.9 % (0-7); HEMATOCRIT 34.3 % (36.0-48.0); HEMOGLOBIN 11.4 g/dL (12-16); IMMATURE GRANULOCYTES 0.2 % (0-5); LYMPHOCYTES 18.5 % (15-50); MCH 30.6 pg (26.0-34.0); MCHC 33.2 g/dL (31.0-37.0); MCV 92.2 fL (80.0-100.0); MEAN PLATELET VOLUME 10.6 fL (7.4-10.4); MONOCYTES 11.6 % (2-11); NEUTROPHILS 66.4 % (40-80); RBC 3.72 10x6/uL (4.00-5.40); WBC 8.4 10x3/uL (4.8-10.8)
[2019-11-08 07:34] LABS: PLATELET COUNT 371 10x3/uL (130-400)
--- NOTE | 2019-11-08 09:31 | NUR ---
Nitroglycerine drip increased to 20mcg/min. BP 156/106. O2 D/C'D. SPO2 ON ROOM AIR 92-94%. SON AT BEDSIDE. STATUS DISCUSSED. PATIENT WANTS TO GO HOME. STATES "I HAVE BEEN HERE FOR 2 WEEKS!"
--- NOTE | 2019-11-08 11:20 | NUR ---
DR. PRESCOTT ROUNDS. NORVASC 10MG, NITROPATCH 0.6MCH, AND LASIX 40MG ORDERED FOR BLOOD PRESSURE.
--- NOTE | 2019-11-08 12:13 | NUR ---
Nutrition Follow-up: Pt reports not being hungry this AM and just drinking juice. Family reports that pt eats when she is hungry and that she has been eating 25-50% of meals. Denies N/V/C/D, chewing/swallowing difficulties. POD 6 CABG. Diet: Regular Wt: 85# (11/07); 84# (11/05); 84# (11/02) Last BM: 11/07 Labs noted: Glu 142, Alb 2.6 Meds noted: Protonix, KDur, Colace -Encourage PO intake and honor food preferences. -Offer nutrition supplements. -Monitor wt. -RD following.
--- NOTE | 2019-11-08 12:35 | NUR ---
BLOOD PRESSURE 125/83. NITROGLYCERINE DECREASED TO 15MCG/MIN.
--- NOTE | 2019-11-08 12:50 | NUR ---
BP 122/83. NITROGLYCERINE DECREASED TO 10MCG/MIN. O2 RESUMED AT 2 L/M FOR SPO2 OF 88 TO 90%.
--- NOTE | 2019-11-08 13:30 | NUR ---
BP REMAINS 120S SYSTOLIC. NITROGLYCERINE DRIP DECREASED TO 5MCG/MIN. NEW IV SITED TO RIGHT FOREARM WITH 20GA X 1 ATTEMPS. RIGHT IJ TRIPLE LUMEN CVL REMOVED. PRESSURE TO SITE FOLLOWED BY TEGADERM OCCLUSIVE DRESSING. PATIENT IS VERY ANXIOUS FROM PROCEDURES. C/O PRESSURE IN CHEST. BECOMING VERY SOB, GASPING FOR AIR. HEART RATE 130-140. SPO2 DECREASED TO 70S. DR. HUITRON NEARBY AND NOTIFIED. NON-REBREATER MASK AT 15L/M APPLIES. SPO2 SLOWLY INCREASED TO UPPER 80S.
--- NOTE | 2019-11-08 14:30 | NUR ---
ONGOING CARE FOR ACUTE ONSET OF SOB AND CHEST PRESSURE. DR. HUITRON AND DR. DIMAS HERE. STATE EKG DONE. NO ACUTE CHANGES. PATIENT TURNED TO LEFT SIDE WITH HOB FLAR PER DR. HUITRON. HAND HELD ECHOCARDIOGRAM DONE BY DR. DIMAS THEN BEDSIDE ECHOCARDIOGRAM DONE. DR. DIMAS REVIEWED. NO ACUTE CHANGES. ABGS DONE.
--- NOTE | 2019-11-08 14:45 | NUR ---
NS 500ML BOLUS HUNG. TRANSPORTED TO CT FOR STAT CTA OF CHEST. NO ACUTE CHANGES FOUND. PATIENT VERY IRRITABLE AND COMPLAINING OF PAIN AND "BEING TREATED ROUGH". EXPLAINATION GIVEN FOR ALL INTERVENTIONS DUE TO ACUTE ONSET OF SYMPTOMS. HEART RATE REMAINS IN 130S. BP 130 TO 160MM/HG. BACK TO ROOM.
--- NOTE | 2019-11-08 15:44 | NUR ---
PERCOCET 5MG GIVEN FOR C/O CHEST "SORENESS" 9/10 ON PAIN SCALE.
--- NOTE | 2019-11-08 16:15 | NUR ---
DR. CRESPO HERE. INFORMED OF EVENTS. AMIODARONE 150MG LOADING DOSE AND CONTINUOUS INFUSION AT 1MG/MIN (10ML/HR) ORDERED AND GIVEN. PAIN EASING FROM PERCOCET.
--- NOTE | 2019-11-08 17:00 | NUR ---
ASSISTED TO BEDSIDE COMMODE. VOIDED CLEAR URINE. O2 DECREASED TO 5 L/M VIA NC. SPO2 94 TO 98. PAIN RELIEVED. PATIENT APOLOGIZES FOR IRRITABLE BEHAVIOR EARLIER. DISCUSSED TURNING OF PHONE AND GETTING REST. PATIENT IS RECEIVING CALLS FROM CUSTOMERS WHICH ARE UPSETTING.
--- NOTE | 2019-11-08 19:10 | NUR ---
PT RECEIVED WITH EYES CLOSED AND CHEST RISING. EASILY AWOKEN UPON ENTERING ROOM. ASSESSMENT COMPLETED, SEE FLOW SHEET. ON AMIODARONE DRIP. HR TACHY. BP WNL. DENIES PAIN. CALL LIGHT IN REACH. WILL CONTINUE TO OBSERVE.
--- NOTE | 2019-11-08 21:53 | NUR ---
RECEIVED SCHEDULED MEDICATIONS, TOLERATED WELL. IN ROOM AT THIS TIME. WILL CONTINUE TO OBSERVE.
[2019-11-09] VITALS (23 sets, daily range): BP systolic 101–158; BP diastolic 71–105
--- NOTE | 2019-11-09 07:00 | NUR ---
REPORT RECEVIED FROM THE OFF GOING RN. SEE ASSESSMENT IN THE PTS FLOW SHEET. PT DENIES PAIN/NEEDS AT THIS TIME. PT SITTING OOB IN THE BEDSIDE CHAIR. INSTUCTED TO USE IS 10X'S/H. CALL LIGHT IN REACH. WILL CONT POC.
[2019-11-09 07:14] LABS: BASOPHILS 0.2 % (0-2); EOSINOPHILS 2.6 % (0-7); HEMATOCRIT 35.1 % (36.0-48.0); HEMOGLOBIN 11.7 g/dL (12-16); IMMATURE GRANULOCYTES 0.3 % (0-5); LYMPHOCYTES 13.8 % (15-50); MCH 30.9 pg (26.0-34.0); MCHC 33.3 g/dL (31.0-37.0); MCV 92.6 fL (80.0-100.0); MEAN PLATELET VOLUME 9.7 fL (7.4-10.4); MONOCYTES 10.7 % (2-11); NEUTROPHILS 72.4 % (40-80); PLATELET COUNT 375 10x3/uL (130-400); RBC 3.79 10x6/uL (4.00-5.40); RDW 12.9 % (11.5-14.5)
[2019-11-09 07:28] LABS: WBC 11.4 10x3/uL (4.8-10.8)
[2019-11-09 07:37] LABS: ALKALINE PHOSPHATASE 80 U/L (30-120); ALT (SGPT) 25 U/L (10-68); BILIRUBIN - TOTAL 0.46 mg/dL (0.2-1.3); CALC OSMOLALITY 275 mosm/kg (275-300); CARBON DIOXIDE 27.4 mmol/L (21.0-32.0); CHLORIDE - SERUM 103 mmol/L (98-107); CREATININE - SERUM 0.5 mg/dL (0.6-1.3); GLUCOSE 112 mg/dL (74-106); MAGNESIUM - SERUM 1.6 mg/dL (1.8-2.4); PHOSPHOROUS 3.6 mg/dL (2.5-4.9); POTASSIUM - SERUM 4.2 mmol/L (3.5-5.1); PRO BNP 4227 pg/mL (0-125); PROTEIN - SERUM 6.2 g/dL (6.4-8.2); SODIUM 138 mmol/L (136-145); eGFR NON AFRICAN AMERICAN > 90 mL/min (90-120)
[2019-11-09 07:38] LABS: UREA NITROGEN 11 mg/dL (7-18)
--- NOTE | 2019-11-09 08:20 | NUR ---
PER DR CRESPO, GIVE 40MG IV LASIX NOW. START 200MG AMIODORONE BID AND DC IV AMIO AFTER 3 HOURS OF GIVING PO.
--- NOTE | 2019-11-09 08:44 | NUR ---
MEAL TRAY PROVIDED FOR THE PT
--- NOTE | 2019-11-09 13:00 | NUR ---
CINDY ESPINOZA DC'D PER ORDERS.
--- NOTE | 2019-11-09 13:53 | NUR ---
REPORT RECEIVED FROM OFF GOING NURSE AND PATIENT CARE ASSSUMED. PATIENT SITTING UP IN CHAIR AWAKE, ALERT AND ORIENTED X 4. PATIENT IS STABLE AND VSS. PATIENT DENIES ANY PAIN. PATIENT IS HOPING TO GO HOME TODAY AWAITING VISIT FR BARRERA. AT . WILL CONTINUE WITH PLAN OF CARE. CALL LIGHT IN REACH.
--- NOTE | 2019-11-09 15:15 | NUR ---
REASSESMENT COMPLETED. PATIENT IS STABLE AND VSS.
--- NOTE | 2019-11-09 16:38 | NUR ---
PATIENT IS STABLE AND VSS. SITTING UP IN BS CHAIR. AT BS. PATIENT DENIES ANY NEEDS OR PAIN. WILL CONTINUE TO MONITOR. CALL LIGHT IN REACH.
--- NOTE | 2019-11-09 19:00 | NUR ---
SHIFT ASSESSMENT COMPLETED. PT CARE ASSUMED. MONITORS ON AND WORKING, PT AWAKE AND ALERT, SITTING UP IN CHAIR. CALL LIGHT WITHIN REACH, SEE FLOW SHEET FOR FURTHER DETAILS. WILL CONTINUE TO OBSERVE.
--- NOTE | 2019-11-09 21:00 | NUR ---
PT SITTING UP IN BED. CALL LIGHT WITHIN REACH, WILL CONTINUE TO OBSERVE.
--- NOTE | 2019-11-09 23:00 | NUR ---
PT C/O PAIN AT IV SITE, SOME REDNESS NOTED. PT REFUSES FOR IV TO BE RESITED AND REFUSES IV MEDS. MD AWARE. SEE FLOW SHEET FOR FURTHER DETAILS. WILL CONTINUE TO OBSERVE.
[2019-11-10] VITALS (12 sets, daily range): BP systolic 101–142; BP diastolic 62–84
--- NOTE | 2019-11-10 01:00 | NUR ---
D/C PERIPHERAL IV, PT TOLERATED FINE. MONITORS ON AND WORKING, VSS. CALL LIGHT WITHIN REACH, WILL CONTINUE TO OBSERVE.
--- NOTE | 2019-11-10 03:45 | NUR ---
WENT IN PTS ROOM TO DO I&O'S, PERLA DRAIN APPEARED TO BE EMPTIED FROM PREVIOUS ASSESSMENT,PT THEN STATES "OH I EMPTIED THAT, ITS IN THE CUP BY THE SINK".... PERLA DRAIN CLEANED WITH CHOLRA PREP AND COMPRESSED. 50 ML EMPTIED FROM CUP. EXPLAINED TO PT IMPORTANCE OF PERLA DRAIN REMAINING CLEAN AND THE RISKS THAT COULD COME ALONG WITH PT DECIDING TO DRAIN PERLA. SEE FLOW SHEET FOR FURTHER DETAILS. CALL LIGHT WITHIN REACH.
--- NOTE | 2019-11-10 05:00 | NUR ---
PT SITTING UP IN BEDSIDE CHAIR. MONITORS ON AND WORKING, VSS. CALL LIGHT WITHIN REACH, WILL CONTINUE TO OBSERVE.
[2019-11-10 06:00] LABS: BASOPHILS 0.4 % (0-2); EOSINOPHILS 3.3 % (0-7); HEMATOCRIT 35.3 % (36.0-48.0); HEMOGLOBIN 11.6 g/dL (12-16); IMMATURE GRANULOCYTES 0.5 % (0-5); MCH 30.4 pg (26.0-34.0); MCHC 32.9 g/dL (31.0-37.0); MCV 92.7 fL (80.0-100.0); MEAN PLATELET VOLUME 9.7 fL (7.4-10.4); MONOCYTES 11.8 % (2-11); RBC 3.81 10x6/uL (4.00-5.40); RDW 13.1 % (11.5-14.5)
[2019-11-10 06:14] LABS: PLATELET COUNT 481 10x3/uL (130-400)
[2019-11-10 06:21] LABS: CALC OSMOLALITY 274 mosm/kg (275-300); CARBON DIOXIDE 28.1 mmol/L (21.0-32.0); CHLORIDE - SERUM 103 mmol/L (98-107); GLUCOSE 115 mg/dL (74-106); POTASSIUM - SERUM 4.4 mmol/L (3.5-5.1); SODIUM 137 mmol/L (136-145); UREA NITROGEN 13 mg/dL (7-18); eGFR NON AFRICAN AMERICAN > 90 mL/min (90-120)
[2019-11-10 06:36] LABS: CREATININE - SERUM 0.7 mg/dL (0.6-1.3)
--- NOTE | 2019-11-10 08:53 | NUR ---
0715-PT AWAKE AND AMBULATING IN ROM WITH O2 AT 2L-PERLA DRAIN COMPRESSED-NO IV LINE IN PLACE- 0800-NO CHANGES-O2 SAT 93 AND 2L-CASEMANAGEMENT NOTIFIED OF NEED FOR O2 AT DISCHARGE-PT NOT ON HOME O2 AT THIS TIME
--- NOTE | 2019-11-10 09:52 | EC ---
PATIENT:KRITSA TUCKER DATE OF SERVICE: 10/28/19 SEX: F MEDICAL RECORD: [id number] DATE OF : [birth year] LOCATION:[place] [address] AGE OF PATIENT: 54 ADMISSION DATE: 10/28/19 REFERRING PHYSICIAN: INTERPRETING PHYSICIAN: KATY DIMAS MD ECHOCARDIOGRAM REPORT ECHO CHARGES 4 ECHO COMPLETE Date: 11/08/19 CLINICAL DIAGNOSIS: SOB ECHOCARDIOGRAPHIC MEASUREMENTS (adult normal given) AC root (d.<3.7cm) 2.6 cm LV Septum d (<1.2 cm> 0.9 cm Valve Excursion 1.1 cm LV Septum (systole) 1.0 cm Left Atria (s.<4.0cm> 2.7 cm LVPW d(<1.2cm) 1.1 cm RV (d.<2.3cm) 2.5 cm LVPW (sytole) 1.2 cm LV diastole(<5.6CM) 3.5 cm MV E-F(>70mm/sec) cm LV systole 2.8 cm LVOT Diameter 1.6 cm MV exc.(>10mm) cm Est.ejection fraction (50-75%) % DOPPLER: LVIT cm/sec A 73 cm/sec E 57 cm/sec LA cm/sec RVSP 29.3 mmHg LVOT 86 cm/sec AOP1/2T m/s Asc. Ao 219 cm/sec RVOT 57 cm/sec RA cm/sec PA 61 cm/sec AV Gradient Peak 19.2 mmHg AV Mean 8.6 mmHg AV Area 1.0 cm MV Gradient Peak 4.5 mmHg MV Mean 3.2 mmHg MV Area cm COMMENTS: Stretching Press Operator: Aleja JARAMILLO Certified Art Therapist: Oni Dimas TAPE# PACS Pericardial Effusion N DATE OF SERVICE: PROCEDURE: Transthoracic echocardiogram. FINDINGS: 1. The left ventricle is normal size, shape, and function with ejection fraction of 45% to 50%. 2. Left atrium appears to be grossly normal. 3. The aortic valve is normal. 4. The mitral valve has mild mitral regurgitation. ECHOCARDIOGRAM REPORT [id number] KRISTA TUCKER 5. The tricuspid valve has mild tricuspid regurgitation, RVSP of 29 mmHg. 6. The right ventricle is normal. 7. The right atrium is normal. 8. The pulmonic valve is normal. 9. The pericardium has no effusion. TRANSINT:[id number] Voice Confirmation ID: [id number] DOCUMENT ID: [id number] KATY DIMAS MD at 0952 CC: [id number] DICTATION DATE: 11/09/19 0745 PRODUCTION TRUCK DRIVER: 11/09/19 0855 ADM IN [facility] [address] [place] [id number]
--- NOTE | 2019-11-10 11:27 | MORECARE ---
CASE MANAGEMENT DISCHARGE SUMMARY PATIENT: KRISTA TUCKER UNIT: [id number] ADM DATE: 10/28/19 AGE: 54 : [birth year] SEX: F [facility] AUTHOR: MICHA,DOC PHYSICIAN: REFERRING PHYSICIAN: MARLON MCDONNELL MD DATE OF SERVICE: 11/10/19 Discharge Plan Patient Name: KRISTA TUCKER Facility: [facility]:[place] : 1965 Planned Disposition: Home Anticipated Discharge Date: Discharge Date: Expected LOS: Initial Reviewer: [email or web address] Initial Review Date: 11/07/2019 Generated: 11/10/19 12:26 pm DCP- Discharge Planning Updated by [email or web address]: Sana Soto on 11/07/19 9:[address] Patient Name: KRISTA TUCKER Admission Status: ER Accout number: [id number] Admission Date: 10-28-2019 : 1965 Admission Diagnosis:CHEST PAIN, UNSPECIFIED Attending: NORMAN Current LOS: 10 Anticipated DC Date: Planned Disposition: Home Primary Insurance: MEDICAID [place] Discharge Planning Comments: CM met with patient to complete initial dc planning assessment. CM educated patient on the CM role and verbal consent given by patient to complete assessment. Patient lives at home with family. Patient is independent. At discharge patient plans to return home and feels this is a safe discharge. CM discussed availability of home health, rehab services, and medical equipment. Patient will have family to transport home. Patient denied known discharge needs at this time. Patient may need walk test if requiring 02. CM will continue to follow and will assist as needed with dc plans/needs Public Health Doctor: Sana Soto DCPIA - Discharge Planning Initial Assessment Updated by [email or web address]: Sana Soto on 11/07/19 10:02 pm * Is the patient Alert and Oriented? Yes * How many steps to enter\exit or inside your home? * PCP CRUZ * Pharmacy [facility] * Preadmission Environment Home with Family * ADLs Independent * Equipment Nebulizer * List name and contact numbers for known caregivers / representatives who currently or will assist patient after discharge: DARRYL TUCKER - [employer]- [phone], * Verbal permission to speak to the caregivers and representatives has been obtained from the patient. Yes * Community resources currently utilized None * Additional services required to return to the preadmission environment? No * Can the patient safely return to the preadmission environment? Yes * Has this patient been hospitalized within the prior 30 days at any hospital? No External Providers External Provider: [facility] Next Contact Date: Service Request Date: Service Type: Resolution: Reviewer: Comments: Last DP export: 11/07/19 9:09 p Patient Name: KRISTA TUCKER Page [id number] at 1127 All edits/amendments must be made on the electronic document DICTATION DATE: 11/10/191126 SUBMARINE ELEMENT COORDINATOR: PILO 11/10/191126 RPT#: [id number] DC DATE: STATUS: ADM IN [facility] [address] [place] [address] END OF REPORT
--- NOTE | 2019-11-10 11:38 | NUR ---
Nutrition Follow-up: POD 8 CABG. Pt reports improved appetite/PO intake and states she ate >50% of breakfast this AM. Diet: Regular PO intake: 75-100% yesterday Wt: 85# (11/09); 85# (11/07); 84# (11/02) Last BM: 11/09 Labs noted: Glu 115 Meds noted: MagOx, Protonix, KDur, Colace -Encourage PO intake and honor food preferences. -Offer nutrition supplements. -Monitor wt. -RD following.
--- NOTE | 2019-11-10 11:48 | NUR ---
PACER WIRES AND PERLA DRAIN REMOVED BY Venkata MACIAS RN-PT SUPINE FOR REQUIRED TIME-DR HUITRON AT BEDSIDE-SPOKE WITH PT AND OKAYED TO DISCHARGE HOME
[2019-11-10] MEDS ORDERED: KEFLEX500 MG PO (12:11)
[2019-11-10] MEDS ORDERED: AMIODARONE HCL200 MG PO (12:12)
[2019-11-10] MEDS ORDERED: NORVASC10 MG PO (12:13)
[2019-11-10] MEDS ORDERED: LOPRESSOR25 MG PO (12:13)
[2019-11-10] MEDS ORDERED: LISINOPRIL2.5 MG PO (12:14)
[2019-11-10] MEDS ORDERED: MUCINEX DM ER1 EAC1 PO (12:16)
[2019-11-10] MEDS ORDERED: FLORAJEN3 CAPS460 MG PO (12:17)
[2019-11-10] MEDS ORDERED: PERCOCET 5-3251 TAB PO (12:19)
--- NOTE | 2019-11-10 15:47 | NUR ---
1230-HOME O2 SET UP WITH [employer] [facility] FOR O2 DELIVERY TO [facility] 1330-PT STATED SHE RECIEVED TELEPHONE CALL FROM O2 COMPANY-THAT REQUIRED HER TO PAY OVER THE PHONE -AND SHE DID-CASE MANAGEMENT NOTIFIED OF SAME 1400-CALL TO [employer] [facility] MADE INQUIRING INCIDENT WITH PT AND NEED FOR OVER THE TELEPHONE PAYMENT-SEE CASE MANAGEMENT NOTE-NO RESOLUTION ACHIEVED-STRESSED TO PT TO KEEP RECIEPT AND APPLY FOR REIMBURSEMENT WITH MEDICAID-WAITING FOR O2 TANK ARRIVAL AT HOSPITAL 1510-PT AND LEFT WITHOUT O2 TANK-NOTED SAT ON ROOM AIR 93% WHILE SITTING IN WHEELCHAIR-PT LEFT WITHOUT NOTIFYING STAFF
--- NOTE | 2019-11-10 18:29 | MORECARE ---
CASE MANAGEMENT DISCHARGE SUMMARY PATIENT: KRISTA TUCKER UNIT: [id number] ADM DATE: 10/28/19 AGE: 54 : [birth year] SEX: F [facility] AUTHOR: MICHA,DOC PHYSICIAN: REFERRING PHYSICIAN: MARLON MCDONNELL MD DATE OF SERVICE: 11/10/19 Discharge Plan Patient Name: KRISTA TUCKER Facility: [facility]:[place] : 1965 Planned Disposition: Home Anticipated Discharge Date: Discharge Date: 11/10/2019 Expected LOS: Initial Reviewer: [email or web address] Initial Review Date: 11/07/2019 Generated: 11/10/19 7:29 pm Comments DCP- Discharge Planning Updated by [email or web address]: Sana Soto on 11/10/19 5:[address] CM was notified that patient will need home 02 @ discharge and planning on discharge today. MIRA signed for [employer] @ [facility]. CM faxed over walk test and ABG's . CM later got a call from [employer] that patient's insurance wasn't good. CM contacted [employer] spoke with Schuyler he stated that the patient is still showing active on Medicaid webpage. CM called and spoke with Shraddha at [employer] she stated that the patient is in limbo currently because she hasn't chosen a plan and without that being done they are unable to charge her insurance. Patient has agreed to pay $199.00 for her 02. While waiting on DME to deliver 02 to room. Patient and spouse left without portable 02 for transport. CM notified [employer] that patient went out without assistance. DCP- Discharge Planning Updated by [email or web address]: Sana Soto on 11/07/19 9:[address] Patient Name: KRISTA TUCKER Admission Status: ER Accout number: [id number] Admission Date: 10-28-2019 : 1965 Admission Diagnosis:CHEST PAIN, UNSPECIFIED Attending: NORMAN Current LOS: 10 Anticipated DC Date: Planned Disposition: Home Primary Insurance: MEDICAID [place] Discharge Planning Comments: CM met with patient to complete initial dc planning assessment. CM educated patient on the CM role and verbal consent given by patient to complete assessment. Patient lives at home with family. Patient is independent. At discharge patient plans to return home and feels this is a safe discharge. CM discussed availability of home health, rehab services, and medical equipment. Patient will have family to transport home. Patient denied known discharge needs at this time. Patient may need walk test if requiring 02. CM will continue to follow and will assist as needed with dc plans/needs Supervisor Accounting Clerks: Sana Soto DCPIA - Discharge Planning Initial Assessment Updated by [email or web address]: Sana Soto on 11/07/19 10:02 pm * Is the patient Alert and Oriented? Yes * How many steps to enter\exit or inside your home? * PCP CRUZ * Pharmacy [facility] * Preadmission Environment Home with Family * ADLs Independent * Equipment Nebulizer * List name and contact numbers for known caregivers / representatives who currently or will assist patient after discharge: DARRYL TUCKER - [facility]- [phone], * Verbal permission to speak to the caregivers and representatives has been obtained from the patient. Yes * Community resources currently utilized None * Additional services required to return to the preadmission environment? No * Can the patient safely return to the preadmission environment? Yes * Has this patient been hospitalized within the prior 30 days at any hospital? No Last DP export: 11/10/19 10:27 a Patient Name: KRISTA TUCKER Page 15108 at 5202 All edits/amendments must be made on the electronic document DICTATION DATE: 11/10/191828 COMPUTER NETWORK ENGINEER: PILO 11/10/191828 RPT#: [id number] DC DATE:11/10/19 STATUS: DIS IN [facility] [address] [place] [address] END OF REPORT
== END 2019-11-10 16:04 | disposition home or self-care (01) | DRG 233 ==
LOC: D.ER 11:34 → D.M2 15:03 → D.EDHOLD 15:03 → D.CVICU 15:03 → D.M2 15:38 → D.EDHOLD 16:02 → D.M2 16:18 → D.CVICU 11-02 13:09
PROVIDERS: Family Medicine; Family Medicine Adult Medicine; Internal Medicine Cardiovascular Disease; Internal Medicine Pulmonary Disease; Thoracic Surgery (Cardiothoracic Vascular Surgery); ADMIT Family Medicine; ATTEND Family Medicine
PROC: B2100ZZ Fluoroscopy of Single Coronary Artery using High Osmolar Contrast (ICD-10-PCS; 2019-10-30)
PROC: B2160ZZ Fluoroscopy of Right and Left Heart using High Osmolar Contrast (ICD-10-PCS; 2019-10-30)
PROC: 4A023N8 Measurement of Cardiac Sampling and Pressure, Bilateral, Percutaneous Approach (ICD-10-PCS; principal; 2019-10-30 09:12)
PROC: 02100Z9 Bypass Coronary Artery, One Artery from Left Internal Mammary, Open Approach (ICD-10-PCS; 2019-11-02)
PROC: 021109W Bypass Coronary Artery, Two Arteries from Aorta with Autologous Venous Tissue, Open Approach (ICD-10-PCS; 2019-11-02)
PROC: 06BP4ZZ Excision of Right Saphenous Vein, Percutaneous Endoscopic Approach (ICD-10-PCS; 2019-11-02)
PROC: 5A1221Z Performance of Cardiac Output, Continuous (ICD-10-PCS; 2019-11-02)
PROC: B24BZZ4 Ultrasonography of Heart with Aorta, Transesophageal (ICD-10-PCS; 2019-11-02)
DX: I21.4 Non-ST elevation (NSTEMI) myocardial infarction (principal); J96.01 Acute respiratory failure with hypoxia; F17.213 Nicotine dependence, cigarettes, with withdrawal; J98.11 Atelectasis; I25.10 Atherosclerotic heart disease of native coronary artery without angina pectoris; I10 Essential (primary) hypertension; F41.8 Other specified anxiety disorders; J43.9 Emphysema, unspecified; F12.90 Cannabis use, unspecified, uncomplicated

== ENCOUNTER → 2019-11-23 | Emergency (ER) | payer MEDICAID ==
[~2019-11-23] VITALS: Ht 165.1 cm; Wt 41.8 kg
[~2019-11-23] MED LIST changes: +AMIODARONE HCL200 MG PO; +FLORAJEN3 CAPS460 MG PO; +KEFLEX500 MG PO; +LISINOPRIL2.5 MG PO; +LOPRESSOR25 MG PO; +MUCINEX DM ER1 EAC1 PO; +NORVASC10 MG PO; +PERCOCET 5-3251 TAB PO
[2019-11-23 17:34] VITALS: BP 120/67; Ht 165.1 cm; Wt 41.8 kg
== END | disposition home or self-care (01) ==
LOC: D.ER 17:28
DX: M94.0 Chondrocostal junction syndrome [Tietze] (principal); Z95.1 Presence of aortocoronary bypass graft; I10 Essential (primary) hypertension; J44.9 Chronic obstructive pulmonary disease, unspecified; W01.0XXA Fall on same level from slipping, tripping and stumbling without subsequent striking against object, initial encounter; Y93.9 Activity, unspecified; Y92.9 Unspecified place or not applicable

== ENCOUNTER → 2019-12-06 08:59 | Outpatient (CLI) | payer MEDICAID ==
[2019-11-23 17:34] VITALS: BMI 15.3
[2019-12-06 09:28] LABS: BASOPHILS 0.5 % (0-2); EOSINOPHILS 5.8 % (0-7); HEMATOCRIT 45.8 % (36.0-48.0); HEMOGLOBIN 14.7 g/dL (12-16); IMMATURE GRANULOCYTES 0.1 % (0-5); LYMPHOCYTES 30.3 % (15-50); MCH 30.6 pg (26.0-34.0); MCHC 32.1 g/dL (31.0-37.0); MCV 95.2 fL (80.0-100.0); MEAN PLATELET VOLUME 10.2 fL (7.4-10.4); MONOCYTES 8.6 % (2-11); NEUTROPHILS 54.7 % (40-80); RBC 4.81 10x6/uL (4.00-5.40); RDW 14.2 % (11.5-14.5); WBC 7.6 10x3/uL (4.8-10.8)
[2019-12-06 09:35] LABS: CALC OSMOLALITY 271 mosm/kg (275-300); CALCIUM 9.5 mg/dL (8.5-10.1); CARBON DIOXIDE 27.2 mmol/L (21.0-32.0); CHLORIDE - SERUM 100 mmol/L (98-107); CREATININE - SERUM 0.8 mg/dL (0.6-1.3); GLUCOSE 84 mg/dL (74-106); POTASSIUM - SERUM 4.8 mmol/L (3.5-5.1); SODIUM 136 mmol/L (136-145); UREA NITROGEN 15 mg/dL (7-18); eGFR NON AFRICAN AMERICAN 80 mL/min (90-120)
[2019-12-06 09:46] LABS: PLATELET COUNT 222 10x3/uL (130-400)
== END | disposition home or self-care (01) ==
LOC: D.LAB 08:59
PROVIDERS: ATTEND Thoracic Surgery (Cardiothoracic Vascular Surgery)
DX: Z95.1 Presence of aortocoronary bypass graft (principal)

== ENCOUNTER 2020-08-24 08:55 | Observation (INO) | payer MEDICAID ==
[~2020-08-24] VITALS: Ht 165.1 cm; Wt 50.0 kg
[2020-08-24 09:12] VITALS: BP 152/83
[2020-08-24 09:31] LABS: BASOPHILS 0.4 % (0-2); EOSINOPHILS 2.8 % (0-7); HEMATOCRIT 39.8 % (36.0-48.0); HEMOGLOBIN 13.4 g/dL (12-16); LYMPHOCYTE ABS# 1.99 10x3/uL (1.18-3.74); LYMPHOCYTES 36.9 % (15-50); MCHC 33.7 g/dL (31.0-37.0); MCV 89.2 fL (80.0-100.0); MEAN PLATELET VOLUME 10.1 fL (7.4-10.4); MONOCYTES 7.8 % (2-11); NEUTROPHIL ABS# 2.81 10x3/uL (1.56-6.13); NEUTROPHILS 52.1 % (40-80); PLATELET COUNT 272 10x3/uL (130-400); RBC 4.46 10x6/uL (4.00-5.40); RDW 12.9 % (11.5-14.5); WBC 5.4 10x3/uL (4.8-10.8)
[2020-08-24 09:39] LABS: CALC OSMOLALITY 281 mosm/kg (275-300); CALCIUM 9.1 mg/dL (8.5-10.1); CARBON DIOXIDE 25.3 mmol/L (21.0-32.0); CHLORIDE - SERUM 105 mmol/L (98-107); GLUCOSE 99 mg/dL (74-106); POTASSIUM - SERUM 4.7 mmol/L (3.5-5.1); SODIUM 140 mmol/L (136-145); UREA NITROGEN 22 mg/dL (7-18); eGFR NON AFRICAN AMERICAN 62 mL/min (90-120)
[2020-08-24 09:41] LABS: APTT 27.5 SECONDS (22.8-39.4); INR 1.03 (0.85-1.17); PROTIME 12.5 SECONDS (11.6-15.0)
[2020-08-24 09:56] LABS: ALKALINE PHOSPHATASE 98 U/L (30-120); ALT (SGPT) 21 U/L (10-68); BILIRUBIN - TOTAL 0.28 mg/dL (0.2-1.3); CKMB 0.9 U/L (0.0-3.6); CREATINE KINASE 75 UL (21-215); PROTEIN - SERUM 7.2 g/dL (6.4-8.2); TROPONIN-I < 0.017 ng/mL (0.000-0.060)
[2020-08-24 10:28] LABS: KETONE NEGATIVE (NEGATIVE); NITRITE NEGATIVE (NEGATIVE)
[2020-08-24 10:29] LABS: BACTERIA RARE HPF (NONE SEEN); BILIRUBIN NEGATIVE (NEGATIVE); SQUAMOUS EPITHELIAL 0-5 HPF (0-4); UROBILINOGEN NORMAL mg/dL (< 2); WHITE CELLS - URINE NONE SEEN HPF (0-4)
[2020-08-24 13:52] VITALS: BP 135/86
--- NOTE | 2020-08-24 13:52 | NUR ---
PT A&O X4 WITH NO C/O OF PAIN AT THIS TIME. SHE STATES SHE HAS INTERMITTENT PAIN ON HER LEFT SIDE UNDER HER BREAST. IT DOES NOT LAST LONG BUT IS SHARP. VSS AND CALL LIGHT IN REACH. WILL CONTINUE TO MONITOR. WAITING ON BED ON THE FLOOR.
--- NOTE | 2020-08-24 14:10 | NUR ---
REPORT RECEIVED FROM ZULMA IN ED. PATIENT TO UNIT SOON.
--- NOTE | 2020-08-24 14:29 | NUR ---
TRANSFERRED TO 2012. REPORT GIVEN. PT INFORMED AND NO NEW C/O AT THIS TIME.
[2020-08-24] MEDS ORDERED: BUPROPION HCL200 M1 PO (14:34)
--- NOTE | 2020-08-24 14:40 | NUR ---
SCDs REFUSED. PATIENT ABLE TO TELL THIS CLINICAL DIRECTOR EXACTLY HOW AND WHY WE USE THEM AND SHE DOES NOT WANT THEM. PATIENT HAS REFUSED BILATERAL SCDs, CHARGE NURSE IN ROOM A WITNESS.
[2020-08-24 14:43] VITALS: BP 135/86; Ht 165.1 cm; Wt 50.0 kg
--- NOTE | 2020-08-24 15:12 | NUR ---
ECG COMPLETE AND PLACED ON CHART.
[2020-08-24 15:24] VITALS: BP 127/84
[2020-08-24 16:16] LABS: CKMB 1.1 U/L (0.0-3.6); CREATINE KINASE 74 UL (21-215)
[2020-08-24 16:18] LABS: TROPONIN-I < 0.017 ng/mL (0.000-0.060)
--- NOTE | 2020-08-24 16:21 | NUR ---
FSBS 120. NO INSULIN PER SLIDING SCALE. PATIENT DOES NOT WANT FSBS, SHE HAS NO HX OF DIABETES AND DOESN'T KNOW WHY THIS FSBS TEST HAS BEEN ORDERED. 120 IS POST PRANDIAL OF HIGH STARCHY MEAL, 99 A FASTING FSBS. EDUCATION PROVIDED DUE TO FASTING BLOOD SUGAR OF 99 PROVIDED. PATIENT IS BETTER UNDERSTANDING NOW OF WHY FSBS HAVE BEEN ORDERED. NO DISTRESS.
--- NOTE | 2020-08-24 19:10 | NUR ---
REPORT RECEIVED, PT CARE ASSUMED. PT SITTING UP IN BED, AAOX4, VISITING WITH AT BEDSIDE. DENIES NEEDS AND PAIN AT THIS TIME. DESCRIBES CP A WAXING AND WANING PINCHING AND THEN CRAMPING, DENIES RADIATION, WHEN IT OCCURS. BED LOWEST, SRX1, CL WITHIN REACH. CPOC.
[2020-08-24 21:04] VITALS: BP 135/81
[2020-08-24 23:06] LABS: CKMB 1.1 U/L (0.0-3.6); CREATINE KINASE 65 UL (21-215)
[2020-08-24 23:09] LABS: TROPONIN-I < 0.017 ng/mL (0.000-0.060)
[2020-08-25 01:57] VITALS: BP 103/67
[2020-08-25 03:32] LABS: BASOPHILS 0.6 % (0-2); EOSINOPHILS 2.7 % (0-7); HEMATOCRIT 42.2 % (36.0-48.0); HEMOGLOBIN 14.4 g/dL (12-16); IMMATURE GRANULOCYTES 0.2 % (0-5); LYMPHOCYTE ABS# 1.99 10x3/uL (1.18-3.74); LYMPHOCYTES 41.3 % (15-50); MCH 30.4 pg (26.0-34.0); MCHC 34.1 g/dL (31.0-37.0); MCV 89.2 fL (80.0-100.0); MEAN PLATELET VOLUME 10.4 fL (7.4-10.4); MONOCYTES 11.4 % (2-11); NEUTROPHIL ABS# 2.11 10x3/uL (1.56-6.13); NEUTROPHILS 43.8 % (40-80); PLATELET COUNT 259 10x3/uL (130-400); RBC 4.73 10x6/uL (4.00-5.40); WBC 4.8 10x3/uL (4.8-10.8)
[2020-08-25 03:52] LABS: ALKALINE PHOSPHATASE 96 U/L (30-120); ALT (SGPT) 24 U/L (10-68); BILIRUBIN - TOTAL 0.23 mg/dL (0.2-1.3); CALC OSMOLALITY 283 mosm/kg (275-300); CALCIUM 9.5 mg/dL (8.5-10.1); CARBON DIOXIDE 24.4 mmol/L (21.0-32.0); CHLORIDE - SERUM 106 mmol/L (98-107); CKMB 0.9 U/L (0.0-3.6); CREATINE KINASE 65 UL (21-215); CREATININE - SERUM 0.9 mg/dL (0.6-1.3); GLUCOSE 90 mg/dL (74-106); MAGNESIUM - SERUM 2.2 mg/dL (1.8-2.4); PHOSPHOROUS 4.8 mg/dL (2.5-4.9); PROTEIN - SERUM 7.5 g/dL (6.4-8.2); SODIUM 141 mmol/L (136-145); UREA NITROGEN 22 mg/dL (7-18); eGFR NON AFRICAN AMERICAN 70 mL/min (90-120)
[2020-08-25 04:00] LABS: POTASSIUM - SERUM 3.6 mmol/L (3.5-5.1); TROPONIN-I < 0.017 ng/mL (0.000-0.060)
[2020-08-25 06:10] VITALS: BP 119/86
[2020-08-25 07:36] VITALS: BP 115/72
[2020-08-25] MEDS ORDERED: CRESTOR5 MG PO (09:30)
[2020-08-25 11:20] VITALS: BP 135/82
--- NOTE | 2020-08-25 12:52 | NUR ---
ALERT AND ORIENTED X4. SITTING UP IN BED. SPOUSE AT BEDSIDE. DC LT HAND IV TIP INTACT. DISCHARGE INSTRUCTIONS GIVEN VERBALLY AND WRITTEN. ESCORT TO RIDE VIA WHEELCHAIR. REMAINS FREE FROM INJURY.
--- NOTE | 2020-08-26 08:00 | CN ---
PATIENT NAME:KRISTA TUCKER MEDICAL RECORD: [id number] : [birth year] LOCATION:D. [address] ADMIT DATE: 08/24/20 ACCOUNT: [id number] CONSULTING PHYSICIAN: MARLON GIBBONS MD REFERRING PHYSICIAN: LARRY FELIX DO DATE OF CONSULTATION: 08/25/2020 HISTORY OF PRESENT ILLNESS: A 54-year-old female with a history of coronary artery disease, status post coronary artery bypass graft in October of this year. She has a history of hypertension, hyperlipidemia, admitted with chest pain, somewhat atypical with cramping, lasting a matter of seconds, does radiate in the left arm. No associated dyspnea, not exertion related. No change in effort tolerance over the past few weeks. We are asked to see him concerning his cardiovascular status. PAST MEDICAL HISTORY: Includes; 1. History of coronary artery disease as described above. 2. Hypertension. 3. Hyperlipidemia. ALLERGIES: OPIOIDS, TETRACYCLINE, ERYTHROMYCIN. MEDICATIONS: Chronically include amlodipine 10 mg p.o. daily, metoprolol 25 b.i.d., lisinopril 2.5 every day, Crestor 5 every day, aspirin 81 every day, Wellbutrin 200 b.i.d. SOCIAL HISTORY: Nonsmoker, nondrinker. Easily takes care of all his ADLs. REVIEW OF SYSTEMS: The patient reports easy bruising but reports no swollen glands. The patient reports no fever, no night sweats, no significant weight gain, no significant weight loss. No significant exercise tolerance. The patient reports no dry eyes, no irritation, no vision change. Patient reports no difficulty hearing and no ear pain. Patient reports no frequent nose bleeds or nose and sinus problems. Patient reports on arm pain on exertion. No shortness of breath while lying down. No history of heart murmur. Patient reports no cough, no wheezing or coughing up blood. Patient reports no abdominal pain, no vomiting. Normal appetite. No diarrhea and not vomiting blood. No nausea and no constipation. Patient reports no incontinence. No difficulty urinating. No hematuria. No increased frequency. Patient reports no muscle aches. No weakness, no arthralgias, no back pain. No swelling of the extremities. Patient reports no abnormal mole, no jaundice, no rashes. Reports no loss of consciousness. No weakness and no numbness. No seizures, dizziness, or headaches. The patient reports no depression, no sleep disturbance, feeling safe in a relationship and no alcohol abuse. Patient reports on fatigue. Reports no runny nose or sinus pressure. No itching, no hives, and no frequent sneezing. PHYSICAL EXAMINATION: GENERAL: No acute distress, appears stated age. VITAL SIGNS: Blood pressure 115/72, pulse 71 and regular. HEENT: Normocephalic, atraumatic. NECK: No bruits noted. HEART: Regular. No gallops noted. LUNGS: Good air excursion. ABDOMEN: Soft and nontender. CONSULT REPORT [id number] KRISTA TUCKER EXTREMITIES: Pulses 2+. No edema. IMPRESSION: Chest pain, somewhat atypical at this point. No EKG changes or change in cardiac enzymes to indicate ongoing ischemia. At this point in time, we will continue to monitor as an outpatient. If symptomatology continues, I am going to consider further evaluation at that time. TRANSINT:[id number] Voice Confirmation ID: [id number] DOCUMENT ID: [id number] MARLON GIBBONS MD at 0800 CC: [id number] DICTATION DATE: 08/25/20940 MODELING INSTRUCTOR: 08/25/201933 DIS IN 08/25/20 [facility] [address] [place] [address]
== END 2020-08-25 12:54 | disposition home or self-care (01) ==
LOC: D.ER 08:55 → D.M2 10:19 → OBSVTIME 10:19 → D.M2 08-25 12:54
PROVIDERS: Family Medicine; ADMIT Family Medicine; ATTEND Family Medicine
DX: R07.9 Chest pain, unspecified (principal); I10 Essential (primary) hypertension; I25.10 Atherosclerotic heart disease of native coronary artery without angina pectoris; J44.9 Chronic obstructive pulmonary disease, unspecified; Z95.0 Presence of cardiac pacemaker; E78.5 Hyperlipidemia, unspecified